=== PATIENT | male | born 1950 | race African-American/Black ===

== ENCOUNTER → 2018-08-22 14:11 | Outpatient (CLI) | payer MEDICARE, OTHER, SELFPAY ==
[2018-08-22 16:20] LABS: Prostate Specific Antigen 0.195 ng/mL (0.10-4.00)
== END ==
PROVIDERS: PCP Internal Medicine; Visit Provider Urology
DX: Z12.5 Encounter for screening for malignant neoplasm of prostate (principal)
CPT/HCPCS: 36415; 84153

== ENCOUNTER → 2019-07-12 13:10 | Outpatient (CLI) | payer MEDICARE, OTHER, SELFPAY ==
--- NOTE | 2019-07-12 | DI.US.S_ITS ---
PROCEDURE: US ABDOMEN LIMITED INDICATIONS: ABNORMAL LIVER FUNCTION STUDIES TECHNIQUE: Real-time scanning was performed of the abdominal and retroperitoneal organs, with image documentation. COMPARISON: None. FINDINGS: Liver: Liver is normal in size and homogeneous in echotexture. Gallbladder: The gallbladder is contracted and the wall measures 2.4 mm in diameter. A 4 mm polyp is present within the fundus. Biliary ducts: Intrahepatic bile ducts are non-dilated. Extrahepatic bile duct caliber measures 4.2 mm. Normal is 6-7 mm or less in diameter, or 10 mm or less post-cholecystectomy. Pancreas: The pancreas is poorly visualized. Spleen: Spleen is normal in size and homogeneous in echotexture. Kidneys: Kidneys are normal in size and echotexture. Right kidney measures 11.1 cm long long. Aorta: Visualized aorta is normal in caliber at less than 3 cm. IMPRESSION: 1. No cholelithiasis or findings to suggest choledocholithiasis or acute cholecystitis. Dictated by: Elizabeth Myers M.D. on 07/12/2019 at 17:25 Approved by: Elizabeth Myers M.D. on 07/12/2019 at 17:27
[2019-07-12 15:44] LABS: Alanine Aminotransferase 224 IU/L (21-72); Albumin 3.9 g/dL (3.5-5.0); Alkaline Phosphatase 78 U/L (38-126); Aspartate Aminotransferase 125 IU/L (17-59); BUN Creatinine Ratio 38.6 (6-22); Bilirubin Total 0.6 mg/dL (0.2-1.3); Bilirubin Unconjugated 0.3 mg/dL (0.0-1.1); Blood Urea Nitrogen 27 mg/dL (9-20); Calcium 9.6 mg/dL (8.4-10.2); Carbon Dioxide 25 mmol/L (22-32); Chloride 106 mmol/L (98-107); Cholesterol 169 mg/dL (140-199); Estimated Glomerular Filt Rate > 60.0 mL/min (>60); Globulin 4.1 g/dL (1.7-4.1); Glucose 78 mg/dL (80-110); HDL Cholesterol 42 mg/dL (40-60); HEMOLYSIS < 15 (0-50); LDL Cholesterol Calculated 111 mg/dL (<100); Potassium 3.7 mmol/L (3.4-5.1); Sodium 141 mmol/L (137-145); Triglycerides 81 mg/dL (35-150)
[2019-07-12 16:17] LABS: Prostate Specific Antigen 0.147 ng/mL (0.10-4.00)
== END ==
PROVIDERS: PCP Internal Medicine; Visit Provider Internal Medicine
DX: R94.5 Abnormal results of liver function studies (principal); I10 Essential (primary) hypertension; E78.2 Mixed hyperlipidemia; N40.0 Benign prostatic hyperplasia without lower urinary tract symptoms
CPT/HCPCS: 36415; 76705; 80048; 80061; 80076; 84153; 87517; 87522

== ENCOUNTER → 2019-07-28 11:23 | Outpatient (CLI) | payer MEDICARE, OTHER, SELFPAY ==
[2019-07-28 12:47] LABS: Add Manual Diff / Slide Review NO; Basophils Absolute Auto 0 /uL (0-100); Basophils Percent Auto 0.6 % (0-2); Eosinophils Absolute Auto 100 /uL (0-450); Eosinophils Percent Auto 2.1 % (2-4); Hematocrit 42.6 % (41-53); Hemoglobin 14.3 g/dL (13.5-17.5); Lymphocytes Absolute Auto 1300 /uL (1100-4500); Lymphocytes Percent Auto 24.6 % (25-40); Mean Corpuscular HGB Conc 33.5 % (30-36); Mean Corpuscular Hemoglobin 32.6 PG (26-34); Mean Corpuscular Volume 97.4 fL (80-100); Monocytes Absolute Auto 400 /uL (0-900); Monocytes Percent Auto 7.3 % (3-14); Neutrophils Absolute Auto 3500 /uL (1500-7000); Neutrophils Percent Auto 65.4 % (50-75); Platelet Count 97 X10^3/uL (150-400); Red Blood Cell Count 4.37 X10^6/uL (4.5-5.9); Red Cell Distribution Width 12.7 % (11.6-14.8); White Blood Cell Count 5.3 X10^3/uL (4.5-11.0)
[2019-07-28 12:49] LABS: Iron 180 ug/dL (49-181)
[2019-07-28 12:57] LABS: Alanine Aminotransferase 322 IU/L (21-72); Albumin 3.8 g/dL (3.5-5.0); Alkaline Phosphatase 76 U/L (38-126); Aspartate Aminotransferase 161 IU/L (17-59); BUN Creatinine Ratio 27.1 (6-22); Bilirubin Total 0.7 mg/dL (0.2-1.3); Blood Urea Nitrogen 19 mg/dL (9-20); Calcium 9.3 mg/dL (8.4-10.2); Carbon Dioxide 27 mmol/L (22-32); Chloride 102 mmol/L (98-107); Estimated Glomerular Filt Rate > 60.0 mL/min (>60); Glucose 135 mg/dL (80-110); HEMOLYSIS < 15 (0-50); Potassium 3.6 mmol/L (3.4-5.1); Sodium 139 mmol/L (137-145); Total Protein 7.8 g/dL (6.3-8.2)
== END ==
PROVIDERS: PCP Internal Medicine; Visit Provider Internal Medicine
DX: E83.119 Hemochromatosis, unspecified (principal); R53.83 Other fatigue
CPT/HCPCS: 36415; 80053; 82728; 83540; 84443; 85025

== ENCOUNTER 2019-09-27 14:09 | Day surgery (SDC) | payer MEDICARE, OTHER, SELFPAY ==
--- NOTE | 2019-09-27 | PATH_ITS ---
[facility] Accession Number: [id number] . 01 Material submitted: . PART A: colon - ASCENDING COLON POLYP PART B: colon - DESCENDING COLON POLYP . 01 Clinical history: . B: POLYP X2 . 02 Diagnosis: A. Ascending Colon, Polyp, Biopsy: Tubular adenoma. . B. Descending Colon, Polyps x2, Biopsies: Tubular adenomas. MRV 10/02/2019 0939 Local . 02 Electronically signed: . Ashley Villasenor MD, Pathologist NPI- [id number] . 01 Gross description: . Part A: ASCENDING COLON POLYP: Received in formalin is 1 fragment(s) of cummings, soft tissue measuring 0.7 x 0.1 x 0.3 cm submitted entirely in 1 cassette(s) Part B: DESCENDING COLON POLYP: Received in formalin are 2 fragment(s) of cummings, soft tissue measuring 0.7 x 0.3 x 0.1 cm to 0.3 x 0.2 x 0.2 cm submitted entirely in 1 cassette(s) /QBJ 09/28/2019 0730 Local . 02 Pathologist provided ICD-10: D12.2, D12.4 . 02 CPT . 222587, 559202 Performed at: 01 [facility] [address], [place], [place] [id number] MD Ned Saha MD Phone: [phone] Performed at: 02 [facility] [place] [address] [place], [place] [id number] MD Ashley Villasenor MD Phone: [phone]
[2019-09-27 14:30] VITALS: BP 152/80; PULSE 81; RESP 20; TEMP 36.8; O2SAT 95; BMI 26.0
[2019-09-27] MEDS: SODIUM CHLORIDE 0.9% 1,000 ML 70 ML IV (14:46)
--- NOTE | 2019-09-27 15:00 | PM.HP.1 ---
History of Present Illness History of Present Illness Date Patient Seen: 09/27/19 Time Patient Seen: 15:00 Chief complaint: [id number] Narrative: Personal history of colon polyps, last colonoscopy 3 years ago. Denies diarrhea or constipation. Denies rectal bleeding. Patient History Medical History Hypertension (Acute) Surgical History S/P total hip resurfacing (Acute) Family & Social History Social History: household members spouse Meds Home Medications and Allergies Home Medications Medication Instructions Recorded Confirmed Type amlodipine 2.5 mg PO DAILY 09/27/19 09/27/19 History tolterodine [Detrol LA] 4 mg PO DAILY 09/27/19 09/27/19 History Allergies Allergy/AdvReac Type Severity Reaction Status Date / Time lovastatin [LOVASTATIN] Allergy Mild LIVER Unverified 09/27/19 14:45 ISSUES Review of Systems Review of Systems ROS Unobtainable: All systems reviewed & are unremarkable except as noted in HPI and below Exam Vital Signs (past 8 hours): - 09/27/19 14:30 Temperature 98.2 F Pulse Rate 81 Respiratory Rate 20 Blood Pressure 152/80 H Pulse Oximetry 95 Oxygen Delivery Method Room Air Const General: cooperative, healthy appearing, comfortable, well groomed and No acute distress Nutritional Appearance: average body habitus Orientation: oriented x3 Resp Effort & Inspection: normal respiratory effort, able to speak in complete sentences and normal respiratory pattern Auscultation: clear to auscultation bilaterally GI Palpation: soft, No guarding, No rigid and No tender Auscultation: normal bowel sounds Extrem Right lower extremity: no edema Left lower extremity: no edema Assessment & Plan Assessment & Plan narrative: 1. Personal history of polyps Colonoscopy, further recommendations to follow
[2019-09-27] MEDS: fentaNYL 250 MCG/5 ML INJ IV (15:01)
[2019-09-27] MEDS: MIDAZOLAM 5 MG/5 ML VIAL IV (15:02)
--- NOTE | 2019-09-27 15:27 | PM.OP.ENDO ---
Operative Date/Time/Diagnoses Date of procedure: 09/27/19 Time of procedure: 15:05 Procedure Notes Procedure in detail: Surgeon: Jovita Johnson DO Procedure: Colonoscopy with polypectomy Preoperative diagnosis: 1. Personal history colon polyps, last colonoscopy 3 years ago Postoperative diagnosis: 1. 5mm Ascending colon polyp removed with cold snare 2. Two polyps in the descending colon 5-6 mm in size removed with cold snare 3. Sigmoid diverticulosis 4. Grade 1 internal hemorrhoids Medications: Conscious sedation using 5 mg IV of Midazolam and 100 mcg IV of Fentanyl Preanesthesia Assessment An H and P was performed/updated and the Px?s ASA class is 2. The procedure was discussed in detail with the patient. The potential risks and complications including infection, bleeding, missed lesions, perforation, need for surgery in case of perforation, prolonged hospital stay, and were explained. A brief question and answer period was allotted and once all questions were answered, informed consent was obtained. The patient was brought back to the procedure room and placed on standard monitoring. The patient?s vital signs were monitored continuously throughout the entire procedure. Prior to starting, a timeout was performed to confirm the patient?s identity, allergies, medications, and procedure. Procedure in detail The patient was placed in left lateral decubitus position and once adequate sedation was obtained a [place] was performed. The digital rectal examination did not reveal any palpable lesions. The tip of the colonoscope was placed in the anal canal and advanced without difficulty all the way to the cecum which was identified by the appendiceal orifice and the ileocecal valve. Careful examination of all thomas of the colon was performed with irrigation of any residual stool. One polyp in the ascending colon removed cold 5 mm Two polyps in the descending colon measuring 5-6 mm in size removed with cold snare Sigmoid diverticulosis Grade 1 mild internal hemorrhoids The patient tolerated the procedure well and will be brought back to the recovery area to be discharged once criteria are met. The prep was judged to be good/excellent and adequate to identify polyps less than 5 mm. The withdrawal time was 11min. The total physician intraservice time was 21min. Complications There were no complications and estimated blood loss was minimal. Recommendations: Resume previous diet Continue outPx medications Follow up pathology results Repeat colonoscopy in 3-5 years based on pathology results An emergency contact number was given to the patient for any complications related to the procedure
[2019-09-27 15:36] VITALS: BP 137/70; PULSE 82; RESP 14; TEMP 36.6; O2SAT 97
[2019-09-27 15:41] VITALS: BP 133/78; PULSE 91; RESP 11; O2SAT 97
[2019-09-27 16:00] VITALS: BP 143/82; PULSE 84; RESP 20; TEMP 36.2; O2SAT 97
== END 2019-09-27 16:04 | disposition home or self-care (01) ==
PROVIDERS: PCP Internal Medicine; Visit Provider Student in an Organized Health Care Education/Training Program
PROC: 0DJD8ZZ Inspection of Lower Intestinal Tract, Via Natural or Artificial Opening Endoscopic (ICD-10-PCS; CPT 45378; principal; 2019-09-27 15:00)
DX: Z12.11 Encounter for screening for malignant neoplasm of colon (principal); Z86.010 Personal history of colon polyps; I10 Essential (primary) hypertension; K64.0 First degree hemorrhoids; K57.30 Diverticulosis of large intestine without perforation or abscess without bleeding; D12.2 Benign neoplasm of ascending colon; D12.4 Benign neoplasm of descending colon
CPT/HCPCS: 45385; J2250; J3010

== ENCOUNTER → 2019-11-30 14:37 | Outpatient (ROUT) | payer MEDICARE, OTHER, SELFPAY ==
[2019-11-30 14:54] LABS: Add Manual Diff / Slide Review NO; Basophils Absolute Auto 100 /uL (0-100); Eosinophils Absolute Auto 100 /uL (0-450); Eosinophils Percent Auto 2.5 % (2-4); Hematocrit 43.2 % (41-53); Hemoglobin 14.8 g/dL (13.5-17.5); Lymphocytes Absolute Auto 1800 /uL (1100-4500); Lymphocytes Percent Auto 30.3 % (25-40); Mean Corpuscular HGB Conc 34.3 % (30-36); Mean Corpuscular Hemoglobin 33.3 PG (26-34); Mean Corpuscular Volume 97.1 fL (80-100); Monocytes Absolute Auto 600 /uL (0-900); Monocytes Percent Auto 9.6 % (3-14); Neutrophils Absolute Auto 3300 /uL (1500-7000); Neutrophils Percent Auto 56.6 % (50-75); Platelet Count 105 X10^3/uL (150-400); Red Blood Cell Count 4.45 X10^6/uL (4.5-5.9); Red Cell Distribution Width 12.5 % (11.6-14.8); White Blood Cell Count 5.9 X10^3/uL (4.5-11.0)
[2019-11-30 15:56] LABS: Alanine Aminotransferase 341 IU/L (<50); Albumin Globulin Ratio 0.9 (1.0-2.8); Alkaline Phosphatase 77 U/L (38-126); Aspartate Aminotransferase 165 IU/L (17-59); BUN Creatinine Ratio 27.5 (6-22); Bilirubin Total 0.6 mg/dL (0.2-1.3); Blood Urea Nitrogen 22 mg/dL (9-20); Calcium 9.7 mg/dL (8.4-10.2); Carbon Dioxide 28 mmol/L (22-32); Chloride 103 mmol/L (98-107); Estimated Glomerular Filt Rate > 60.0 mL/min (>60); Globulin 4.4 g/dL (1.7-4.1); Glucose 80 mg/dL (80-110); HEMOLYSIS < 15 (0-50); Potassium 4.2 mmol/L (3.4-5.1); Sodium 139 mmol/L (137-145); Total Protein 8.4 g/dL (6.3-8.2); Uric Acid 5.8 mg/dL (3.5-8.5)
== END ==
PROVIDERS: PCP Internal Medicine; Visit Provider Internal Medicine
DX: M10.9 Gout, unspecified (principal); R94.5 Abnormal results of liver function studies
CPT/HCPCS: 80053; 84550; 85025

== ENCOUNTER → 2020-03-21 15:18 | Outpatient (CLI) | payer MEDICARE, OTHER, SELFPAY ==
[2020-03-21 15:52] LABS: Add Manual Diff / Slide Review NO; Basophils Absolute Auto 100 /uL (0-100); Basophils Percent Auto 1.1 % (0-2); Eosinophils Absolute Auto 200 /uL (0-450); Eosinophils Percent Auto 3.6 % (2-4); Hematocrit 41.7 % (41-53); Hemoglobin 14.5 g/dL (13.5-17.5); Lymphocytes Absolute Auto 1900 /uL (1100-4500); Lymphocytes Percent Auto 29.9 % (25-40); Mean Corpuscular HGB Conc 34.8 % (30-36); Mean Corpuscular Hemoglobin 33.2 PG (26-34); Mean Corpuscular Volume 95.4 fL (80-100); Monocytes Absolute Auto 500 /uL (0-900); Monocytes Percent Auto 8.1 % (3-14); Neutrophils Absolute Auto 3700 /uL (1500-7000); Neutrophils Percent Auto 57.3 % (50-75); Platelet Count 107 X10^3/uL (150-400); Red Blood Cell Count 4.37 X10^6/uL (4.5-5.9); Red Cell Distribution Width 12.4 % (11.6-14.8); White Blood Cell Count 6.4 X10^3/uL (4.5-11.0)
[2020-03-21 15:58] LABS: Alanine Aminotransferase 261 IU/L (<50); Albumin 4.2 g/dL (3.5-5.0); Alkaline Phosphatase 86 U/L (38-126); Aspartate Aminotransferase 141 IU/L (17-59); BUN Creatinine Ratio 26.2 (6-22); Bilirubin Total 0.6 mg/dL (0.2-1.3); Blood Urea Nitrogen 22 mg/dL (9-20); Calcium 9.5 mg/dL (8.4-10.2); Carbon Dioxide 27 mmol/L (22-32); Chloride 105 mmol/L (98-107); Estimated Glomerular Filt Rate > 60.0 mL/min (>60); Gamma Glutamyl Transpeptidase 36 U/L (15-73); Globulin 4.3 g/dL (1.7-4.1); Glucose 91 mg/dL (80-110); HEMOLYSIS < 15 (0-50); Potassium 3.9 mmol/L (3.4-5.1); Sodium 140 mmol/L (137-145); Total Protein 8.5 g/dL (6.3-8.2)
[2020-03-21 16:05] LABS: INR 1.2 (0.9-1.3); Prothrombin Time 13.3 SECONDS (10.1-12.7)
[2020-03-21 17:56] LABS: Hep C Virus Ab w/Reflex Quant REACTIVE s/c (NEGATIVE); Hepatitis B Surface Antigen POSITIVE s/c (NEGATIVE)
== END ==
PROVIDERS: PCP Internal Medicine; Referring Provider Internal Medicine Gastroenterology; Visit Provider Internal Medicine Gastroenterology
DX: Z11.59 Encounter for screening for other viral diseases (principal); R94.5 Abnormal results of liver function studies; B18.1 Chronic viral hepatitis B without delta-agent
CPT/HCPCS: 36415; 80053; 82977; 85025; 85610; 86803; 87340; 87517; 87522

== ENCOUNTER → 2020-07-29 19:05 | Outpatient (ROUT) | payer MEDICARE, OTHER, SELFPAY ==
[2020-07-29 19:29] LABS: HEMOLYSIS < 15 (0-50)
[2020-07-29 19:37] LABS: Blood Urea Nitrogen 18 mg/dL (9-20); Calcium 9.5 mg/dL (8.4-10.2); Carbon Dioxide 32 mmol/L (22-32); Chloride 102 mmol/L (98-107); Cholesterol 204 mg/dL (140-199); Estimated Glomerular Filt Rate > 60.0 mL/min (>60); Glucose 93 mg/dL (80-110); HDL Cholesterol 47 mg/dL (40-60); LDL Cholesterol Calculated 133 mg/dL (<100); Potassium 4.3 mmol/L (3.4-5.1); Sodium 139 mmol/L (137-145); Triglycerides 121 mg/dL (35-150)
[2020-08-01 16:09] LABS: Prostate Specific Antigen 0.182 ng/mL (0.10-4.00)
== END ==
PROVIDERS: PCP Internal Medicine; Visit Provider Internal Medicine
DX: E78.2 Mixed hyperlipidemia (principal); N40.0 Benign prostatic hyperplasia without lower urinary tract symptoms; I10 Essential (primary) hypertension
CPT/HCPCS: 80048; 80061; 84153

== ENCOUNTER → 2020-09-10 08:05 | Outpatient (CLI) | payer MEDICARE, OTHER, SELFPAY ==
--- NOTE | 2020-09-10 | DI.US.S_ITS ---
PROCEDURE: US ABDOMEN LIMITED INDICATIONS: CHRONIC HEP-B TECHNIQUE: Real-time focused scanning was performed of the abdomen, with image documentation. COMPARISON: [facility], [place], US ABDOMEN LIMITED, 07/12/2019, 13:54. [place], ABDOMEN COMPLETE, 03/08/2013, 8:40. [facility], US, US ABDOMEN COMPLETE, 03/18/2020, 10:31. [facility], US, US ABDOMEN COMPLETE, 10/09/2019, 7:13. FINDINGS: Liver is normal in size. Liver is diffusely echogenic. No focal hepatic mass lesions. No intrahepatic biliary tree dilatation. Main portal vein measures 1.36 centimeters and is patent. Gallbladder is sonographically normal. No gallstones. Previously identified gallbladder polyp is not identified in the current study. No gallbladder wall thickening with gallbladder wall measuring 2.0 millimeters. Biliary tree is nondilated. Common bile duct measures 3.6 millimeters. Pancreas is sonographically normal. IMPRESSION: 1. Echogenic liver. Finding typically represents fatty infiltration; however, finding is nonspecific and correlation with clinical and laboratory findings is recommended to exclude other etiologies including hepatic cirrhosis. 2. No focal hepatic mass lesions. 3. Previously identified gallbladder polyp is not seen in the current study and cannot be evaluated for interval change. Dictated by: Jeane Campuzano MD, PhD on 09/10/2020 at 17:00 Approved by: Jeane Campuzano MD, PhD on 09/10/2020 at 17:02
[2020-09-12 10:12] LABS: Hepatitis B Virus DNA <10 IU/mL (.)
== END ==
PROVIDERS: PCP Internal Medicine; Referring Provider Internal Medicine; Visit Provider Internal Medicine Gastroenterology
DX: B18.1 Chronic viral hepatitis B without delta-agent (principal)
CPT/HCPCS: 36415; 76705; 87517

== ENCOUNTER → 2020-12-13 09:53 | Outpatient (CLI) | payer MEDICARE, OTHER, SELFPAY ==
[2020-12-13 10:39] LABS: Add Manual Diff / Slide Review NO; Basophils Absolute Auto 100 /uL (0-100); Basophils Percent Auto 0.9 % (0-2); Eosinophils Absolute Auto 200 /uL (0-450); Eosinophils Percent Auto 3.2 % (2-4); Hematocrit 45.7 % (41-53); Hemoglobin 15.3 g/dL (13.5-17.5); Lymphocytes Absolute Auto 2000 /uL (1100-4500); Lymphocytes Percent Auto 32.5 % (25-40); Mean Corpuscular HGB Conc 33.6 % (30-36); Mean Corpuscular Hemoglobin 32.4 PG (26-34); Mean Corpuscular Volume 96.6 fL (80-100); Monocytes Absolute Auto 600 /uL (0-900); Monocytes Percent Auto 9.1 % (3-14); Neutrophils Absolute Auto 3300 /uL (1500-7000); Neutrophils Percent Auto 54.3 % (50-75); Platelet Count 94 X10^3/uL (150-400); Red Blood Cell Count 4.73 X10^6/uL (4.5-5.9); Red Cell Distribution Width 12.4 % (11.6-14.8); White Blood Cell Count 6.1 X10^3/uL (4.5-11.0)
[2020-12-13 10:50] LABS: INR 1.1 (0.9-1.3); Prothrombin Time 12.6 SECONDS (10.1-12.7)
[2020-12-13 11:11] LABS: Alanine Aminotransferase 245 IU/L (<50); Albumin 4.3 g/dL (3.5-5.0); Albumin Globulin Ratio 0.9 (1.0-2.8); Alkaline Phosphatase 82 U/L (38-126); Aspartate Aminotransferase 112 IU/L (17-59); BUN Creatinine Ratio 26.7 (6-22); Bilirubin Total 0.6 mg/dL (0.2-1.3); Bilirubin Unconjugated 0.6 mg/dL (0.0-1.1); Blood Urea Nitrogen 23 mg/dL (9-20); Calcium 9.4 mg/dL (8.4-10.2); Carbon Dioxide 31 mmol/L (22-32); Chloride 105 mmol/L (98-107); Estimated Glomerular Filt Rate > 60.0 mL/min (>60); Globulin 4.8 g/dL (1.7-4.1); Glucose 92 mg/dL (80-110); HEMOLYSIS < 15 (0-50); Potassium 3.9 mmol/L (3.4-5.1); Sodium 139 mmol/L (137-145); Total Protein 9.1 g/dL (6.3-8.2)
[2020-12-14 07:40] LABS: Alpha Fetoprotein 6.3 ng/mL (0.0-8.3)
== END ==
PROVIDERS: PCP Internal Medicine; Referring Provider Internal Medicine Gastroenterology; Visit Provider Internal Medicine Gastroenterology
DX: B18.1 Chronic viral hepatitis B without delta-agent (principal)
CPT/HCPCS: 36415; 80048; 80076; 82105; 85025; 85610

== ENCOUNTER → 2020-12-27 14:46 | Outpatient (CLI) | payer MEDICARE, OTHER, SELFPAY | PROVIDERS: PCP Internal Medicine; Referring Provider Psychiatry & Neurology Neuromuscular Medicine; Visit Provider Psychiatry & Neurology Neuromuscular Medicine | DX: B18.1 Chronic viral hepatitis B without delta-agent (principal) | CPT/HCPCS: 36415; 86692 ==

== ENCOUNTER → 2021-02-20 11:07 | Outpatient (CLI) | payer MEDICARE, OTHER, SELFPAY ==
[2021-02-20 13:05] LABS: Prostate Specific Antigen 0.164 ng/mL (0.10-4.00)
[2021-02-21 04:36] LABS: Hepatitis B Surf AB Quant <3.1 mIU/mL (Immunity>9.9)
== END ==
PROVIDERS: PCP Internal Medicine; Referring Provider Internal Medicine Gastroenterology; Visit Provider Internal Medicine Gastroenterology
DX: Z12.5 Encounter for screening for malignant neoplasm of prostate (principal); B18.1 Chronic viral hepatitis B without delta-agent
CPT/HCPCS: 36415; 84153; 86692; 86706; G0103

== ENCOUNTER → 2021-03-18 13:00 | Outpatient (CLI) | payer MEDICARE, OTHER, SELFPAY | PROVIDERS: PCP Internal Medicine; Referring Provider Internal Medicine Gastroenterology; Visit Provider Internal Medicine Gastroenterology | DX: B18.1 Chronic viral hepatitis B without delta-agent (principal) | CPT/HCPCS: 36415; 87799 ==

== ENCOUNTER → 2021-03-20 14:41 | Outpatient (CLI) | payer MEDICARE, OTHER, SELFPAY | PROVIDERS: PCP Internal Medicine; Referring Provider Internal Medicine Gastroenterology; Visit Provider Internal Medicine Gastroenterology | DX: B18.1 Chronic viral hepatitis B without delta-agent (principal); Z53.8 Procedure and treatment not carried out for other reasons ==

== ENCOUNTER → 2021-03-21 14:32 | Outpatient (CLI) | payer MEDICARE, OTHER, SELFPAY ==
--- NOTE | 2021-03-21 14:34 | DI.US.S_ITS ---
PROCEDURE: US ABDOMEN LIMITED INDICATIONS: Chronic viral hepatitis B without delta-agent TECHNIQUE: Real-time focused scanning was performed of the abdomen, with image documentation. COMPARISON: [facility], US, US ABDOMEN LIMITED, 07/12/2019, 13:54. [facility], US, US ABDOMEN COMPLETE, 10/09/2019, 7:13. [facility], US, US ABDOMEN COMPLETE, 03/18/2020, 10:31. [facility], US, US ABDOMEN LIMITED, 09/10/2020, 8:21. FINDINGS: The liver is normal in size and demonstrates no focal lesions. No findings of gallstones or sludge are seen. The gallbladder wall is not thickened, measuring 3 mm or less. No specific pericholecystic fluid is seen. The sonographic Hoffman sign is negative. There is no biliary dilatation, the common bile duct measures 4 mm. No significant pancreatic abnormality is seen on these images. IMPRESSION: Normal appearing liver. The gallbladder demonstrates a normal sonographic appearance. No biliary dilatation is seen. Dictated by: Shamar Sadler M.D. on 03/21/2021 at 15:07 Approved by: Shamar Sadler M.D. on 03/21/2021 at 15:09
== END ==
PROVIDERS: PCP Internal Medicine; Referring Provider Internal Medicine Gastroenterology; Visit Provider Internal Medicine Gastroenterology
DX: B18.1 Chronic viral hepatitis B without delta-agent (principal); K74.02 Hepatic fibrosis, advanced fibrosis
CPT/HCPCS: 76705

== ENCOUNTER → 2021-09-10 08:07 | Outpatient (CLI) | payer MEDICARE, OTHER, SELFPAY ==
--- NOTE | 2021-09-10 08:09 | DI.US.S_ITS ---
PROCEDURE: US ABDOMEN LIMITED INDICATIONS: CHRONIC HEPATITIS B TECHNIQUE: Real-time focused scanning was performed of the abdomen, with image documentation. COMPARISON: [facility], [place], US ABDOMEN COMPLETE, 03/18/2020, 10:31. [facility], [place], US ABDOMEN LIMITED, 09/10/2020, 8:21. [facility], [place], US ABDOMEN LIMITED, 03/21/2021, 13:41. FINDINGS: The liver demonstrates normal size and demonstrates overall normal liver echotexture. Within the right liver, there is a slightly hypoechoic lesion that measures 2.4 x 1.9 x 2 cm. The main portal vein demonstrates normal size and demonstrates normal appearing, hepatopetal flow. No findings of gallstones or sludge are seen. The gallbladder wall is not thickened, measuring 3 mm or less. A likely 3 mm gallbladder wall polyp can be seen. No specific pericholecystic fluid is seen. The sonographic Hoffman sign is negative. There is no biliary dilatation, the common bile duct measures 4 mm. The pancreas is not well seen. IMPRESSION: There is a 2.4 cm hypoechoic lesion seen within the right lobe of the liver, which cannot be seen on prior examinations. A liver protocol MRI (without and with contrast) is now recommended for further evaluation (assuming that there is no contraindication). Dictated by: Shamar Sadler M.D. on 09/10/2021 at 10:04 Approved by: Shamar Sadler M.D. on 09/10/2021 at 10:08
== END ==
PROVIDERS: PCP Internal Medicine; Referring Provider Internal Medicine Gastroenterology; Visit Provider Internal Medicine Gastroenterology
DX: B18.1 Chronic viral hepatitis B without delta-agent (principal); K76.9 Liver disease, unspecified
CPT/HCPCS: 76705

== ENCOUNTER → 2021-09-26 12:36 | Outpatient (CLI) | payer MEDICARE, OTHER, SELFPAY ==
--- NOTE | 2021-09-26 | DI.MRI.S_ITS ---
PROCEDURE: MR ABDOMEN WO/W CON INDICATIONS: 71-year-old male with history of hepatitis-B with liver lesion on prior ultrasound. TECHNIQUE: Coronal HASTE, axial 2D FLASH in- and [id number]; axial breath-hold T2 FSE. Dynamic axial VIBE during the administration of contrast; post-contrast coronal VIBE or 2D FLASH with fat saturation from the hepatic dome to the iliac crests. Optional diffusion weighted imaging and ADC may be performed. COMPARISON: [facility], , US ABDOMEN LIMITED, 09/10/2020, 8:21. [facility], [place], US ABDOMEN LIMITED, 03/21/2021, 13:41. [facility], , US ABDOMEN LIMITED, 09/10/2021, 8:14. FINDINGS: Image quality: There is mild motion artifact. Lung bases: No basal pleural effusions. Heart size is normal. Solid organs: Within the posterior right hepatic lobe centered between segments 6 and 7, there is an oval T1 hypointense and slightly T2 hyperintense mass measuring up to 2.0 x 1.8 x 2.0 cm. This demonstrates associated restricted diffusion. Following contrast administration, the mass demonstrates isointense to mildly hypointense signal on the arterial phase with internal washout on portal venous and delayed phases. There is an enhancing pseudocapsule. The findings are consistent with a LR-4 observation. Elsewhere, no additional discrete hepatic mass or suspicious enhancement identified. Biliary system is non dilated. Pancreas is normal in morphology. Spleen is normal in size and enhancement. No adrenal nodules. Kidneys demonstrate no hydronephrosis. There are a few small bilateral renal cysts. Nodes and vessels: There are a few mildly enlarged kane hepatis, celiac axis, and retroperitoneal lymph nodes within the upper abdomen. These include a kane hepatis node measuring up to 1.2 cm in short axis. Aorta and inferior vena cava are normal in size. Bowel and peritoneum: Visualized bowel loops are normal in caliber. No free fluid. Bones and soft tissues: No ventral hernias. Bone marrow is normal in overall signal. IMPRESSION: 1. Right hepatic mass is consistent with an LR-4 observation compatible with probable hepatocellular carcinoma. 2. Mildly enlarged upper abdominal lymph nodes are nonspecific and are likely reactive secondary to history of chronic liver disease but the differential includes metastatic disease. Dictated by: Ned Jansen M.D. on 09/26/2021 at 13:31 Approved by: Ned Jansen M.D. on 09/26/2021 at 14:00
== END ==
PROVIDERS: PCP Internal Medicine; Referring Provider Internal Medicine Gastroenterology; Visit Provider Internal Medicine Gastroenterology
DX: K76.9 Liver disease, unspecified (principal); R59.0 Localized enlarged lymph nodes; Z86.19 Personal history of other infectious and parasitic diseases; Z91.89 Other specified personal risk factors, not elsewhere classified
CPT/HCPCS: 74183

== ENCOUNTER → 2022-02-09 08:48 | Outpatient (CLI) | payer MEDICARE, OTHER, SELFPAY | PROVIDERS: PCP Internal Medicine; Referring Provider Family Medicine; Visit Provider Family Medicine | DX: Z13.820 Encounter for screening for osteoporosis | CPT/HCPCS: 77080; 77081 ==

== ENCOUNTER → 2023-01-25 09:52 | Outpatient (CLI) | payer MEDICARE, OTHER, SELFPAY ==
[2023-01-25 16:56] LABS: Cholesterol 203 mg/dL (140-199); Glucose 97 mg/dL (80-110); HDL Cholesterol 39 mg/dL (40-60); LDL Cholesterol Calculated 142 mg/dL (<100); Triglycerides 110 mg/dL (35-150)
[2023-01-25 17:25] LABS: Prostate Specific Antigen 0.223 ng/mL (0.10-4.00)
== END ==
PROVIDERS: PCP Internal Medicine; Referring Provider Internal Medicine; Visit Provider Internal Medicine
DX: E78.2 Mixed hyperlipidemia (principal); N40.1 Benign prostatic hyperplasia with lower urinary tract symptoms; N13.8 Other obstructive and reflux uropathy
CPT/HCPCS: 36415; 80061; 82947; 84153

== ENCOUNTER → 2024-05-03 15:11 | Outpatient (CLI) | payer MEDICARE, OTHER, SELFPAY ==
[2024-05-03 17:10] LABS: Hematocrit 40.5 % (41-53); Hemoglobin 13.7 g/dL (13.5-17.5); Mean Corpuscular HGB Conc 33.9 % (30-36); Mean Corpuscular Hemoglobin 32.7 PG (26-34); Mean Corpuscular Volume 96.5 fL (80-100); Platelet Count 102 X10^3/uL (150-400); Red Cell Distribution Width 12.8 % (11.6-14.8)
[2024-05-03 17:32] LABS: Alanine Aminotransferase 405 IU/L (<50); Albumin 4.2 g/dL (3.5-5.0); Alkaline Phosphatase 70 U/L (38-126); Aspartate Aminotransferase 182 IU/L (17-59); BUN Creatinine Ratio 34.1 (6-22); Bilirubin Total 0.6 mg/dL (0.2-1.3); Blood Urea Nitrogen 29 mg/dL (9-20); Calcium 9.7 mg/dL (8.4-10.2); Carbon Dioxide 30 mmol/L (22-32); Chloride 107 mmol/L (98-107); Cholesterol 193 mg/dL (140-199); Estimated Glomerular Filt Rate > 60 mL/min (>60); Globulin 4.3 g/dL (1.7-4.1); Glucose 70 mg/dL (80-110); HDL Cholesterol 53 mg/dL (40-60); HEMOLYSIS < 15 (0-50); LDL Cholesterol Calculated 121 mg/dL (<100); Potassium 4.2 mmol/L (3.4-5.1); Sodium 143 mmol/L (137-145); Total Protein 8.5 g/dL (6.3-8.2); Triglycerides 94 mg/dL (35-150)
== END ==
PROVIDERS: PCP Internal Medicine; Referring Provider Internal Medicine; Visit Provider Internal Medicine
DX: N40.1 Benign prostatic hyperplasia with lower urinary tract symptoms (principal); N13.8 Other obstructive and reflux uropathy; E78.2 Mixed hyperlipidemia; I10 Essential (primary) hypertension
CPT/HCPCS: 36415; 80053; 80061; 84153; 85027

== ENCOUNTER → 2024-10-31 15:22 | Outpatient (CLI) | payer MEDICARE, OTHER, SELFPAY ==
[2024-10-31 16:24] LABS: INR 1.1 (0.9-1.3); Prothrombin Time 12.5 SECONDS (9.4-12.5)
[2024-10-31 16:39] LABS: Alanine Aminotransferase 327 IU/L (<50); Albumin 4.1 g/dL (3.5-5.0); Albumin Globulin Ratio 0.8 (1.0-2.8); Alkaline Phosphatase 93 U/L (38-126); Aspartate Aminotransferase 156 IU/L (17-59); BUN Creatinine Ratio 24.4 (6-22); Bilirubin Total 0.7 mg/dL (0.2-1.3); Blood Urea Nitrogen 21 mg/dL (9-20); Calcium 9.5 mg/dL (8.4-10.2); Carbon Dioxide 28 mmol/L (22-32); Chloride 106 mmol/L (98-107); Estimated Glomerular Filt Rate > 60 mL/min (>60); Globulin 4.9 g/dL (1.7-4.1); Glucose 126 mg/dL (80-110); HEMOLYSIS < 15 (0-50); Potassium 3.6 mmol/L (3.4-5.1); Sodium 139 mmol/L (137-145)
[2024-11-02 22:36] LABS: Alpha Fetoprotein 6.1 ng/mL (0.0-8.4)
== END ==
PROVIDERS: PCP Internal Medicine; Referring Provider Internal Medicine Gastroenterology; Visit Provider Internal Medicine Gastroenterology
DX: B18.1 Chronic viral hepatitis B without delta-agent (principal); C22.0 Liver cell carcinoma
CPT/HCPCS: 36415; 80053; 82105; 85610

== ENCOUNTER → 2025-03-29 11:17 | Outpatient (CLI) | payer MEDICARE, OTHER, SELFPAY ==
--- NOTE | 2025-03-29 11:19 | DI.RAD.S_ITS ---
PROCEDURE: XR LUMBAR SPINE 2-3V INDICATIONS: right sciatica, liver cancer TECHNIQUE: 3 views of the lumbar spine were acquired. COMPARISON: None. FINDINGS: Bones: 5 [id number] vertebrae are present. There is normal bony alignment. No vertebral body compression fractures. No suspicious bony lesions. Multilevel degenerative disc disease is present. There is a left arthroplasty. Soft tissues: Overlying bowel gas pattern is normal. No suspicious soft tissue calcifications. IMPRESSION: No acute bony abnormality. Dictated by: Christelle Patton M.D. on 03/29/2025 at 15:19 Approved by: Christelle Patton M.D. on 03/29/2025 at 15:21
== END ==
PROVIDERS: PCP Internal Medicine; Referring Provider Internal Medicine; Visit Provider Internal Medicine
DX: M54.31 Sciatica, right side (principal); Z85.05 Personal history of malignant neoplasm of liver
CPT/HCPCS: 72100

== ENCOUNTER → 2025-04-27 16:12 | Outpatient (CLI) | payer MEDICARE, OTHER, SELFPAY ==
--- NOTE | 2025-04-27 16:14 | DI.MRI.S_ITS ---
PROCEDURE: MR LUMBAR SPINE WO/W CON INDICATIONS: right sciatica. liver transplant TECHNIQUE: Noncontrast sagittal T1 spin echo and T2 fast spin echo, sagittal STIR, axial T1 and T2 fast spin echo through the lumbar spine. In cases with scoliosis, additional coronal T2 fast spin echo may be performed. After the administration of contrast, sagittal and axial T1 spin echo with fat saturation through the lumbar spine. COMPARISON: None. FINDINGS: Image quality: Excellent. Alignment and curvature: Minimal retrolisthesis of L2 on L3 and L3 on L4. Minimal anterolisthesis of L5 on S1 Marrow: Marrow is of normal overall signal. No acute vertebral body compression fractures. No suspicious marrow enhancement. Spinal cord: Conus medullaris terminates at the T12-L1 level. Visualized spinal cord demonstrates normal signal, without suspicious enhancement. Paraspinous soft tissues: No paravertebral masses or abnormal enhancement. T12-L1: Normal appearance. L1-L2: Disc desiccation and disc bulge. Facet arthropathy. No significant central canal or neural foraminal stenosis. L2-L3: Disc desiccation and moderate height loss. Mild disc bulge. Facet arthropathy. No significant central canal or neural foraminal stenosis. L3-L4: 9. Disc desiccation and mild height loss. Mild disc bulge. Facet hypertrophy. Epidural lipomatosis. Moderate central canal stenosis. Ecgn-[id number]-[id number] bilateral neural foraminal stenosis. L4-L5: Disc desiccation and moderate height loss. Diffuse disc bulge. Small superimposed central disc protrusion. Facet hypertrophy. Severe central canal stenosis. Mild to moderate bilateral neural foraminal stenosis. L5-S1: Disc desiccation and small central disc protrusion. Facet hypertrophy. No significant central canal stenosis. Mild right and no left neural foraminal stenosis. IMPRESSION: Multilevel degenerative changes of the lumbar spine as described above. Severe central canal stenosis at L4-5. Dictated by: Jacinto Park M.D. on 04/30/2025 at 8:47 Approved by: Jacinto Park M.D. on 04/30/2025 at 8:51
== END ==
PROVIDERS: PCP Internal Medicine; Referring Provider Internal Medicine; Visit Provider Internal Medicine
DX: M47.26 Other spondylosis with radiculopathy, lumbar region (principal); M47.27 Other spondylosis with radiculopathy, lumbosacral region; M51.16 Intervertebral disc disorders with radiculopathy, lumbar region; M51.17 Intervertebral disc disorders with radiculopathy, lumbosacral region; M48.061 Spinal stenosis, lumbar region without neurogenic claudication; M48.07 Spinal stenosis, lumbosacral region; Z94.4 Liver transplant status
CPT/HCPCS: 72158; A9579

== ENCOUNTER → 2025-06-09 10:34 | Outpatient (CLI) | payer MEDICARE, OTHER, SELFPAY | PROVIDERS: PCP Internal Medicine; Referring Provider Internal Medicine; Visit Provider Internal Medicine | DX: R19.7 Diarrhea, unspecified (principal); Z48.298 Encounter for aftercare following other organ transplant; Z94.4 Liver transplant status | CPT/HCPCS: 87045 ==

== ENCOUNTER → 2025-06-12 07:03 | Outpatient (CLI) | payer MEDICARE, OTHER, SELFPAY ==
[2025-06-12 07:55] LABS: Add Manual Diff / Slide Review NO; Hematocrit 32.9 % (41-53); Hemoglobin 10.9 g/dL (13.5-17.5); Lymphocytes Absolute Auto 1300 /uL (1100-4500); Mean Corpuscular HGB Conc 33.1 % (30-36); Mean Corpuscular Hemoglobin 30.2 PG (26-34); Mean Corpuscular Volume 91.2 fL (80-100); Platelet Count 220 X10^3/uL (150-400)
[2025-06-12 08:10] LABS: INR 1.2 (0.9-1.3); Prothrombin Time 13.1 SECONDS (9.4-12.5)
[2025-06-12 08:19] LABS: Alanine Aminotransferase 21 IU/L (<50); Albumin 3.9 g/dL (3.5-5.0); Albumin Globulin Ratio 1.4 (1.0-2.8); Alkaline Phosphatase 70 U/L (38-126); Blood Urea Nitrogen 26 mg/dL (9-20); Calcium 9.3 mg/dL (8.4-10.2); Carbon Dioxide 22 mmol/L (22-32); Chloride 106 mmol/L (98-107); Estimated Glomerular Filt Rate > 60 mL/min (>60); Globulin 2.7 g/dL (1.7-4.1); Glucose 136 mg/dL (70-99); HEMOLYSIS < 15 (0-50); Magnesium 1.5 mg/dL (1.6-2.3); Phosphorous 3.6 mg/dL (2.3-3.7); Potassium 4.2 mmol/L (3.4-5.1); Sodium 138 mmol/L (137-145); Total Protein 6.6 g/dL (6.3-8.2)
[2025-06-14 14:09] LABS: CMV DNA, Quant Real Time PCR Negative (Negative)
== END ==
PROVIDERS: PCP Internal Medicine; Referring Provider Internal Medicine
DX: Z48.298 Encounter for aftercare following other organ transplant (principal); Z79.899 Other long term (current) drug therapy; Z94.4 Liver transplant status
CPT/HCPCS: 36415; 80053; 80076; 80197; 83735; 84100; 85025; 85610; 87497

== ENCOUNTER → 2025-07-17 06:41 | Outpatient (CLI) | payer MEDICARE, OTHER, SELFPAY ==
[2025-07-17 07:45] LABS: Add Manual Diff / Slide Review NO; Hematocrit 36.3 % (41-53); Hemoglobin 12.1 g/dL (13.5-17.5); Lymphocytes Absolute Auto 1000 /uL (1100-4500); Mean Corpuscular HGB Conc 33.2 % (30-36); Mean Corpuscular Hemoglobin 29.7 PG (26-34); Mean Corpuscular Volume 89.4 fL (80-100); Platelet Count 154 X10^3/uL (150-400)
[2025-07-17 07:52] LABS: INR 1.1 (0.9-1.3); Prothrombin Time 12.3 SECONDS (9.4-12.5)
[2025-07-17 08:09] LABS: Alanine Aminotransferase 21 IU/L (<50); Albumin 4.3 g/dL (3.5-5.0); Albumin Globulin Ratio 1.6 (1.0-2.8); Alkaline Phosphatase 74 U/L (38-126); Blood Urea Nitrogen 28 mg/dL (9-20); Calcium 9.1 mg/dL (8.4-10.2); Carbon Dioxide 22 mmol/L (22-32); Chloride 108 mmol/L (98-107); Estimated Glomerular Filt Rate > 60 mL/min (>60); Gamma Glutamyl Transpeptidase 19 U/L (15-73); Globulin 2.7 g/dL (1.7-4.1); Glucose 116 mg/dL (70-99); HEMOLYSIS < 15 (0-50); Magnesium 1.3 mg/dL (1.6-2.3); Phosphorous 3.6 mg/dL (2.3-3.7); Potassium 3.9 mmol/L (3.4-5.1); Sodium 140 mmol/L (137-145); Total Protein 7.0 g/dL (6.3-8.2)
[2025-07-19 15:40] LABS: CMV DNA, Quant Real Time PCR Negative (Negative)
== END ==
PROVIDERS: PCP Internal Medicine; Referring Provider Internal Medicine; Visit Provider Nurse Practitioner Adult Health
DX: Z48.298 Encounter for aftercare following other organ transplant (principal); Z79.899 Other long term (current) drug therapy; Z94.4 Liver transplant status
CPT/HCPCS: 36415; 80053; 80076; 80197; 82977; 83735; 84100; 85025; 85610; 87497

== ENCOUNTER → 2025-07-31 06:43 | Outpatient (CLI) | payer MEDICARE, OTHER, SELFPAY ==
[2025-07-31 07:52] LABS: Add Manual Diff / Slide Review NO; Hematocrit 36.8 % (41-53); Hemoglobin 12.2 g/dL (13.5-17.5); Lymphocytes Absolute Auto 1000 /uL (1100-4500); Mean Corpuscular HGB Conc 33.0 % (30-36); Mean Corpuscular Hemoglobin 29.5 PG (26-34); Mean Corpuscular Volume 89.4 fL (80-100); Platelet Count 140 X10^3/uL (150-400)
[2025-07-31 08:09] LABS: INR 1.1 (0.9-1.3); Prothrombin Time 12.2 SECONDS (9.4-12.5)
[2025-07-31 08:15] LABS: Alanine Aminotransferase 19 IU/L (<50); Albumin 4.2 g/dL (3.5-5.0); Albumin Globulin Ratio 1.6 (1.0-2.8); Alkaline Phosphatase 64 U/L (38-126); Blood Urea Nitrogen 31 mg/dL (9-20); Calcium 9.4 mg/dL (8.4-10.2); Carbon Dioxide 24 mmol/L (22-32); Chloride 107 mmol/L (98-107); Estimated Glomerular Filt Rate > 60 mL/min (>60); Gamma Glutamyl Transpeptidase 18 U/L (15-73); Globulin 2.6 g/dL (1.7-4.1); Glucose 115 mg/dL (70-99); HEMOLYSIS < 15 (0-50); Magnesium 1.5 mg/dL (1.6-2.3); Phosphorous 3.9 mg/dL (2.3-3.7); Potassium 4.1 mmol/L (3.4-5.1); Sodium 141 mmol/L (137-145); Total Protein 6.8 g/dL (6.3-8.2)
[2025-08-02 12:36] LABS: CMV DNA, Quant Real Time PCR Negative (Negative)
== END ==
PROVIDERS: PCP Internal Medicine; Referring Provider Nurse Practitioner Adult Health; Visit Provider Nurse Practitioner Adult Health
DX: Z48.298 Encounter for aftercare following other organ transplant (principal); Z79.899 Other long term (current) drug therapy; Z94.4 Liver transplant status
CPT/HCPCS: 36415; 80053; 80076; 80197; 82977; 83735; 84100; 85025; 85610; 87497

== ENCOUNTER 2025-08-03 14:30 | Outpatient (RCR) | payer MEDICARE, OTHER, SELFPAY ==
--- NOTE | 2025-05-16 10:49 | PT.OPPOC ---
Physical, Occupational & Speech Therapy At [facility] Current Diagnoses Sciatica, right side (05/16/25) Visit Care Team Role Provider Type Humberto Triana MD Attending Provider Physician Primary Care Provider Referring Provider Specialty: Internal Medicine Address: [address] [place] [address], [id number] Email: [email or web address] Plan Of Care PT-OP-B Current Condition Start: 05/16/25 09:52 Freq: Status: Active Protocol: Document 05/16/25 09:53 DATA OPERATIONS DIRECTOR (Rec: 05/16/25 10:48 DATA OPERATIONS DIRECTOR Laptop) Current Condition History of Current Condition Onset Date January 2025 Current Complaints R sciatica down to calf and big toe History of Current Pt amb into session with spouse impaired gait pattern. Condition L DARIAN 12/25/24 and went through PT and healed well. Pt reports one day about mid-late January 2025 when he was out golfing he began hurting on R hip down to calf with numbness to great toe. Pt reports minimal pain to central low back, more pain to R glute, and most pain to R post/lat calf. Pt reports sitting does not bother him but pain increases when standing and moving and is very difficult to WB through RLE and stand up straight. Had a liver transplant 04/06/25 and therefore was unable to treat sciatica symptoms over past few months while recovering, however medical team wants him to increase activity as part of continued rehab from transplant and has been very limited. Pt reports he will have an evaluation on Wednesday for his back to plan along side liver transplant team for infection prevention to discuss options: cortisone shot vs surgery. Takes pain meds scheduled daily for pain control. Has 1 step into house, reports he has been managing that fairly. Prior Treatments and ~30 days ago had liver transplant Tests Recent MRI impression reveals severe central canal stenosis at L4-5 Treatment Goals Patient/Caregiver To be able to move better without pain and return to Goals golfing PT-OP-T Assessment and Plan Start: 05/16/25 09:52 Freq: Status: Active Protocol: Document 05/16/25 09:53 DATA OPERATIONS DIRECTOR (Rec: 05/16/25 10:48 DATA OPERATIONS DIRECTOR Laptop) Physical Therapy Assessment Rehab Potential Rehabilitation Good Potential Evaluation Complexity Number of Personal 3 or More Factors/ Comorbidities Number of Body 3 Systems Impaired Clinical Stable Presentation at Evaluation Goals 4 Impairment Pain with functional activities Impairment poor activity tolerance with amb d/t pain Short Term Goal (STG Pt will amb for 5 mins on even surface with or without ) AD without rest break to demonstrate improved activity tolerance. STG Duration 6 weeks Usp Goal (LTG) Pt will report ability to play 12 hole golf x1 session with pain no higher than 3/10 in order to return to hobby. LTG Duration 12 weeks 3 Impairment HEP Short Term Goal (STG Pt will demonstrate ind with progressive HEP program at ) least 1x/day, 5 days/wk, for at least 3 weeks in order to progress towards LTGs. STG Duration 6 weeks 2 Impairment BLE strength Impairment On eval: R hip ext 2+, hip abd 3- L hip ext 3-, hip abd 3 Ditch Repairer Goal (LTG) Pt will improve B hip strength of hip ext and hip abd to at least 4/5 without pain to improve function. LTG Duration 12 weeks 1 Impairment LEFS Impairment On eval: 23/80 71% impaired Ditch Repairer Goal (LTG) Pt will improve LEFS score from 23/80 to at least 60/80 to demonstrate improved function. LTG Duration 12 weeks Assessment Summary Assessment Pt presents central canal stenosis at L4-L5 complicated by complex history of L DARIAN earlier this year and liver transplant a month ago. His recovery after transplant has been complicated by pain down R leg and poor endurance with walking and standing. Pt found to have impaired gait pattern d/t pain, decreased strength to B hips, soft tissue impairments to B lumbar spine and R glutes and piriformis, decreased activity tolerance, and significant R sided neural tension. Pt will highly benefit from skilled PT intervention to address impairments and improve functional mobility, recovery from liver transplant, and return to hobby of golf. Physical Therapy Plan Frequency and Duration Frequency of 1-2x/wk Treatment Duration of 12 treatment (weeks) Plan of Care Start 05/16/25 Date Plan of Care End 08/08/25 Date Therapeutic Interventions Therapeutic Balance Training,Gait Training,Home Exercise Program, Interventions Joint Mobilizations,Manual Therapy,Neuromuscular Re- education,Patient/Caregiver Education,Soft Tissue Mobilization,Therapeutic Activities,Therapeutic Exercises Modalities Cold Pack/Ice Massage,Electric Stimulation,Hot Packs, Iontophoresis,Traction- Mechanical,Ultrasound Next Visit Focus/Plan Next Note Type Treatment Note Next Visit Plan PPT, review HEP, gentle supine hip strengthening, gentle piriformis stretch Plan of Care Dates Plan of Care Start Date 05/16/25 Plan of Care End Date 08/08/25 Electronically Signed by: Juliette Pang, PT 05/17/25 [id number] If you are in agreement with this Plan of Care, please return a signed and dated copy. I have reviewed this Plan of Care and certify that the skilled therapy services above are required to meet the patient?s needs. Physician Signature Date Printed Name and Credentials Clinical Instructor Signature Printed Name and Credentials
--- NOTE | 2025-05-16 17:00 | PT.OIE ---
Current Diagnoses Sciatica, right side (05/16/25) Past Medical History (Last Updated 04/25/25 @ 09:58 by Humberto Triana MD) Allergic rhinitis BPH w urinary obs/LUTS Coronary artery calcification seen on CT scan Essential hypertension Gout Hepatitis B and delta, chronic History of alcohol use disorder History of colonic polyps History of hepatocellular carcinoma Hypertension Mixed hyperlipidemia Overweight Primary osteoarthritis involving multiple joints Sciatica, right side Tobacco use disorder Past Surgical History (Last Updated 04/25/25 @ 09:53 by Humberto Triana MD) Liver transplant status (04/05/25) S/p revision of left total hip S/P total hip resurfacing Visit Care Team Role Provider Type Humberto Triana MD Attending Provider Physician Primary Care Provider Referring Provider Specialty: Internal Medicine Address: [address] [place] [address], [facility] Email: [email or web address] Physical Therapy Initial Evaluation PT-OP-A Visit Information Start: 05/16/25 09:52 Freq: Status: Active Protocol: Document 05/16/25 09:53 SR. VENDOR MANAGEMENT ASSOCIATE (Rec: 05/16/25 10:48 SR. VENDOR MANAGEMENT ASSOCIATE Laptop) Out-Patient Physical Therapy Visit Information Visit Information Visit Type Initial Evaluation Visit Start Time 09:50 Visit Stop Time 10:45 Visit Number 1 Number of FUEL AGENT Visits 0 Evaluation Information Evaluation Date 05/16/25 PT-OP-B Current Condition Start: 05/16/25 09:52 Freq: Status: Active Protocol: Document 05/16/25 09:53 SR. VENDOR MANAGEMENT ASSOCIATE (Rec: 05/16/25 10:48 SR. VENDOR MANAGEMENT ASSOCIATE Laptop) Current Condition History of Current Condition Onset Date January 2025 Current Complaints R sciatica down to calf and big toe History of Current Pt amb into session with spouse impaired gait pattern. Condition L DARIAN 12/25/24 and went through PT and healed well. Pt reports one day about mid-late January 2025 when he was out golfing he began hurting on R hip down to calf with numbness to great toe. Pt reports minimal pain to central low back, more pain to R glute, and most pain to R post/lat calf. Pt reports sitting does not bother him but pain increases when standing and moving and is very difficult to WB through RLE and stand up straight. Had a liver transplant 04/06/25 and therefore was unable to treat sciatica symptoms over past few months while recovering, however medical team wants him to increase activity as part of continued rehab from transplant and has been very limited. Pt reports he will have an evaluation on Wednesday for his back to plan along side liver transplant team for infection prevention to discuss options: cortisone shot vs surgery. Takes pain meds scheduled daily for pain control. Has 1 step into house, reports he has been managing that fairly. Prior Treatments and ~30 days ago had liver transplant Tests Recent MRI impression reveals severe central canal stenosis at L4-5 Treatment Goals Patient/Caregiver To be able to move better without pain and return to Goals golfing PT-OP-C Subjective Start: 05/16/25 09:52 Freq: Status: Active Protocol: Document 05/16/25 09:53 SR. VENDOR MANAGEMENT ASSOCIATE (Rec: 05/17/25 08:02 SR. VENDOR MANAGEMENT ASSOCIATE Laptop) Patient Questionnaires Lower Extremity Functional Scale LEFS Score 23/80 LEFS Impairment 60 to 79% Impaired (Score 17-31) Oswestry Low Back Index Oswestry Score 24/50, 48% Oswestry Impairment 40 to 59% Impaired (Score 40-59) PT-OP-F Manual Assessment Start: 05/16/25 09:52 Freq: Status: Active Protocol: Document 05/16/25 09:53 SR. VENDOR MANAGEMENT ASSOCIATE (Rec: 05/17/25 08:02 SR. VENDOR MANAGEMENT ASSOCIATE Laptop) Manual Assessments Other Manual Assessments Other Manual checked in L sidelying: TTP and decreased soft tissue Assessments mobility to B lumbar paraspinals R>L, R glute med and max, and R piriformis PT-OP-G Mobility & Gait Start: 05/16/25 09:52 Freq: Status: Active Protocol: Document 05/16/25 09:53 SR. VENDOR MANAGEMENT ASSOCIATE (Rec: 05/17/25 08:02 SR. VENDOR MANAGEMENT ASSOCIATE Laptop) OP Gait Assessment Comments Gait Comments significant forward flexed posture at hips and lumbar spine, antalgic pattern with decreased stance time on RLE/quick step of LLE with uneven step lengths PT-OP-L Special Tests Start: 05/17/25 08:02 Freq: Status: Active Protocol: Document 05/16/25 09:53 SR. VENDOR MANAGEMENT ASSOCIATE (Rec: 05/17/25 08:05 SR. VENDOR MANAGEMENT ASSOCIATE Laptop) Special Tests Other Special Tests Special Tests Positive slump test, exacerbated with RLE knee ext and DF PT-OP-M Strength Start: 05/16/25 09:52 Freq: Status: Active Protocol: Document 05/16/25 09:53 SR. VENDOR MANAGEMENT ASSOCIATE (Rec: 05/16/25 10:48 SR. VENDOR MANAGEMENT ASSOCIATE Laptop) Hip Strength Hip Manual Muscle Testing R Flexion (L2) 4+ Good+ Extension (S1) 2+ Poor+ Abduction 3- Fair- Comments limited in ext and abd by pain in R hip, ext tested in sidelying L Flexion (L2) 4 Good Extension (S1) 3- Fair- Abduction 3 Fair Comments limited in ext and abd by pain in R hip, ext tested in sidelying Knee Strength Knee Manual Muscle Testing R Flexion (S2) 5 Normal Extension (L3) 5 Normal L Flexion (S2) 4+ Good+ Extension (L3) 4+ Good+ Ankle/Foot Strength Ankle and Foot Manual Muscle Testing R Dorsiflexion (L4) 4 Good L Dorsiflexion (L4) 4+ Good+ PT-OP-Q Treatments Start: 05/16/25 09:52 Freq: Status: Active Protocol: Document 05/16/25 09:53 SR. VENDOR MANAGEMENT ASSOCIATE (Rec: 05/17/25 07:51 SR. VENDOR MANAGEMENT ASSOCIATE Laptop) Therapeutic Exercises Supine Exercises SKTOC Supine Exercise Name single knee to opposite chest Side bilateral Reps/Minutes 1 min each Comments Added to HEP with HO, no pain SKTC Supine Exercise Name single knee to chest Side bilateral Reps/Minutes 1 min each Comments Added to HEP with HO, no pain DKTC Supine Exercise Name double knee to chest Side bilateral Reps/Minutes 1 min Comments Added to HEP with HO, no pain Therapeutic Activity Therapeutic Activity Stenosis edu Name Edu on central canal stenosis, activities that make better and worse Reps/Minutes 10 Comments flexion based activities vs extension based activities PT-OP-T Assessment and Plan Start: 05/16/25 09:52 Freq: Status: Active Protocol: Document 05/16/25 09:53 SR. VENDOR MANAGEMENT ASSOCIATE (Rec: 05/16/25 10:48 SR. VENDOR MANAGEMENT ASSOCIATE Laptop) Physical Therapy Assessment Rehab Potential Rehabilitation Good Potential Evaluation Complexity Number of Personal 3 or More Factors/ Comorbidities Number of Body 3 Systems Impaired Clinical Stable Presentation at Evaluation Goals 4 Impairment Pain with functional activities Impairment poor activity tolerance with amb d/t pain Short Term Goal (STG Pt will amb for 5 mins on even surface with or without ) AD without rest break to demonstrate improved activity tolerance. STG Duration 6 weeks Assisted Goal (LTG) Pt will report ability to play 12 hole golf x1 session with pain no higher than 3/10 in order to return to hobby. LTG Duration 12 weeks 3 Impairment HEP Short Term Goal (STG Pt will demonstrate ind with progressive HEP program at ) least 1x/day, 5 days/wk, for at least 3 weeks in order to progress towards LTGs. STG Duration 6 weeks 2 Impairment BLE strength Impairment On eval: R hip ext 2+, hip abd 3- L hip ext 3-, hip abd 3 Assisted Goal (LTG) Pt will improve B hip strength of hip ext and hip abd to at least 4/5 without pain to improve function. LTG Duration 12 weeks 1 Impairment LEFS Impairment On eval: 23/80 71% impaired Assisted Goal (LTG) Pt will improve LEFS score from 23/80 to at least 60/80 to demonstrate improved function. LTG Duration 12 weeks Assessment Summary Assessment Pt presents central canal stenosis at L4-L5 complicated by complex history of L DARIAN earlier this year and liver transplant a month ago. His recovery after transplant has been complicated by pain down R leg and poor endurance with walking and standing. Pt found to have impaired gait pattern d/t pain, decreased strength to B hips, soft tissue impairments to B lumbar spine and R glutes and piriformis, decreased activity tolerance, and significant R sided neural tension. Pt will highly benefit from skilled PT intervention to address impairments and improve functional mobility, recovery from liver transplant, and return to hobby of golf. Physical Therapy Plan Frequency and Duration Frequency of 1-2x/wk Treatment Duration of 12 treatment (weeks) Plan of Care Start 05/16/25 Date Plan of Care End 08/08/25 Date Therapeutic Interventions Therapeutic Balance Training,Gait Training,Home Exercise Program, Interventions Joint Mobilizations,Manual Therapy,Neuromuscular Re- education,Patient/Caregiver Education,Soft Tissue Mobilization,Therapeutic Activities,Therapeutic Exercises Modalities Cold Pack/Ice Massage,Electric Stimulation,Hot Packs, Iontophoresis,Traction- Mechanical,Ultrasound Next Visit Focus/Plan Next Note Type Treatment Note Next Visit Plan PPT, review HEP, gentle supine hip strengthening, gentle piriformis stretch
--- NOTE | 2025-05-17 12:51 | PT.OTN ---
Current Diagnoses Sciatica, right side (05/17/25) Physical Therapy Treatment Note PT-OP-A Visit Information Start: 05/16/25 09:52 Freq: Status: Active Protocol: Document 05/17/25 11:43 POWERHOUSE OPERATOR (Rec: 05/17/25 12:50 POWERHOUSE OPERATOR Laptop) Out-Patient Physical Therapy Visit Information Visit Information Visit Type Treatment Note Visit Start Time 11:37 Visit Stop Time 12:24 Visit Number 2 Number of DENTAL EQUIPMENT TECHNICIAN Visits 0 Evaluation Information Evaluation Date 05/16/25 PT-OP-B Current Condition Start: 05/16/25 09:52 Freq: Status: Active Protocol: Document 05/16/25 09:53 POWERHOUSE OPERATOR (Rec: 05/16/25 10:48 POWERHOUSE OPERATOR Laptop) Current Condition History of Current Condition Onset Date January 2025 Current Complaints R sciatica down to calf and big toe History of Current Pt amb into session with spouse impaired gait pattern. Condition L DARIAN 12/25/24 and went through PT and healed well. Pt reports one day about mid-late January 2025 when he was out golfing he began hurting on R hip down to calf with numbness to great toe. Pt reports minimal pain to central low back, more pain to R glute, and most pain to R post/lat calf. Pt reports sitting does not bother him but pain increases when standing and moving and is very difficult to WB through RLE and stand up straight. Had a liver transplant 04/06/25 and therefore was unable to treat sciatica symptoms over past few months while recovering, however medical team wants him to increase activity as part of continued rehab from transplant and has been very limited. Pt reports he will have an evaluation on Wednesday for his back to plan along side liver transplant team for infection prevention to discuss options: cortisone shot vs surgery. Takes pain meds scheduled daily for pain control. Has 1 step into house, reports he has been managing that fairly. Prior Treatments and ~30 days ago had liver transplant Tests Recent MRI impression reveals severe central canal stenosis at L4-5 Treatment Goals Patient/Caregiver To be able to move better without pain and return to Goals golfing PT-OP-C Subjective Start: 05/16/25 09:52 Freq: Status: Active Protocol: Document 05/17/25 11:43 POWERHOUSE OPERATOR (Rec: 05/17/25 12:50 POWERHOUSE OPERATOR Laptop) OP-PT Subjective Patient Comments Patient Comments Pt ambs into session today with same antalgic gait pattern d/t RLE pain from low back into calf currently at 6-7/10. Pt reports he tried HEP stretches this morning on floor but was unable to get up from floor. Sent message to yesterday asking about clearance for laying on stomach, is waiting reply. PT-OP-F Manual Assessment Start: 05/16/25 09:52 Freq: Status: Active Protocol: Document 05/16/25 09:53 POWERHOUSE OPERATOR (Rec: 05/17/25 08:02 POWERHOUSE OPERATOR Laptop) Manual Assessments Other Manual Assessments Other Manual checked in L sidelying: TTP and decreased soft tissue Assessments mobility to B lumbar paraspinals R>L, R glute med and max, and R piriformis PT-OP-G Mobility & Gait Start: 05/16/25 09:52 Freq: Status: Active Protocol: Document 05/16/25 09:53 POWERHOUSE OPERATOR (Rec: 05/17/25 08:02 POWERHOUSE OPERATOR Laptop) OP Gait Assessment Comments Gait Comments significant forward flexed posture at hips and lumbar spine, antalgic pattern with decreased stance time on RLE/quick step of LLE with uneven step lengths PT-OP-L Special Tests Start: 05/17/25 08:02 Freq: Status: Active Protocol: Document 05/16/25 09:53 POWERHOUSE OPERATOR (Rec: 05/17/25 08:05 POWERHOUSE OPERATOR Laptop) Special Tests Other Special Tests Special Tests Positive slump test, exacerbated with RLE knee ext and DF PT-OP-M Strength Start: 05/16/25 09:52 Freq: Status: Active Protocol: Document 05/16/25 09:53 POWERHOUSE OPERATOR (Rec: 05/16/25 10:48 POWERHOUSE OPERATOR Laptop) Hip Strength Hip Manual Muscle Testing R Flexion (L2) 4+ Good+ Extension (S1) 2+ Poor+ Abduction 3- Fair- Comments limited in ext and abd by pain in R hip, ext tested in sidelying L Flexion (L2) 4 Good Extension (S1) 3- Fair- Abduction 3 Fair Comments limited in ext and abd by pain in R hip, ext tested in sidelying Knee Strength Knee Manual Muscle Testing R Flexion (S2) 5 Normal Extension (L3) 5 Normal L Flexion (S2) 4+ Good+ Extension (L3) 4+ Good+ Ankle/Foot Strength Ankle and Foot Manual Muscle Testing R Dorsiflexion (L4) 4 Good L Dorsiflexion (L4) 4+ Good+ PT-OP-Q Treatments Start: 05/16/25 09:52 Freq: Status: Active Protocol: Document 05/17/25 11:43 POWERHOUSE OPERATOR (Rec: 05/17/25 12:50 POWERHOUSE OPERATOR Laptop) Therapeutic Exercises Supine Exercises PPT Reps/Minutes 10x2 SKTOC Supine Exercise Name single knee to opposite chest Side bilateral Reps/Minutes 1 min x3 Comments HEP review SKTC Supine Exercise Name single knee to chest Side bilateral Reps/Minutes 1 min x3 Comments HEP review DKTC Supine Exercise Name double knee to chest Side bilateral Reps/Minutes 1 min x3 Comments HEP review Therapeutic Activity Therapeutic Activity Supine<>sit Name via log roll Reps/Minutes x3 each Comments educated on log roll and keeping B knees bent, able to perform without cueing Gait Training Gait Activity 4WW Level of Assistance ind Surface even Distance/Duration 150 Treatment Focus reduce pain, improve gait pattern and endurance Comments Pt has a 4WW at home, recommended use of 4WW at all times for gait until weaned by therapist. Improved upright posture although not fully upright yet d/t pain, improved endurance with reduced pain to RLE, improved B stance time and step lengths. SPC Surface even Distance/Duration 50 Comments SPC trial, did not improve pain or gait pattern although steady. PT-OP-T Assessment and Plan Start: 05/16/25 09:52 Freq: Status: Active Protocol: Document 05/17/25 11:43 POWERHOUSE OPERATOR (Rec: 05/17/25 12:50 POWERHOUSE OPERATOR Laptop) Physical Therapy Assessment Goals 4 Impairment Pain with functional activities Impairment poor activity tolerance with amb d/t pain Short Term Goal (STG Pt will amb for 5 mins on even surface with or without ) AD without rest break to demonstrate improved activity tolerance. STG Duration 6 weeks Long-Term Goal (LTG) Pt will report ability to play 12 hole golf x1 session with pain no higher than 3/10 in order to return to hobby. LTG Duration 12 weeks 3 Impairment HEP Short Term Goal (STG Pt will demonstrate ind with progressive HEP program at ) least 1x/day, 5 days/wk, for at least 3 weeks in order to progress towards LTGs. STG Duration 6 weeks 2 Impairment BLE strength Impairment On eval: R hip ext 2+, hip abd 3- L hip ext 3-, hip abd 3 Long-Term Goal (LTG) Pt will improve B hip strength of hip ext and hip abd to at least 4/5 without pain to improve function. LTG Duration 12 weeks 1 Impairment LEFS Impairment On eval: 23/80 71% impaired Long-Term Goal (LTG) Pt will improve LEFS score from 23/80 to at least 60/80 to demonstrate improved function. LTG Duration 12 weeks Assessment Summary Assessment Pt with 6-7/10 pain with ambulation into session, increased to 7-8/10 with transition sit>supine for exercises, reduced to 2-3/10 pain with HEP stretches. Pt able to maintain reduced pain with supine<>sit with log roll technique and with amb with 4WW but immediately increases back to original pain number once walking out of session without AD. Will see if able to maintain reduced pain at next session when pt brings his 4WW from home and able to walk out of session with it. Physical Therapy Plan Frequency and Duration Frequency of 1-2x/wk Treatment Duration of 12 treatment (weeks) Plan of Care Start 05/16/25 Date Plan of Care End 08/08/25 Date Therapeutic Interventions Therapeutic Balance Training,Gait Training,Home Exercise Program, Interventions Joint Mobilizations,Manual Therapy,Neuromuscular Re- education,Patient/Caregiver Education,Soft Tissue Mobilization,Therapeutic Activities,Therapeutic Exercises Modalities Cold Pack/Ice Massage,Electric Stimulation,Hot Packs, Iontophoresis,Traction- Mechanical,Ultrasound Next Visit Focus/Plan Next Note Type Treatment Note Next Visit Plan review PPT and breathing and progress as tolerated, gentle supine hip strengthening in pain free range with HEP HO, gentle piriformis stretch
--- NOTE | 2025-05-23 16:56 | PT.OTN ---
Current Diagnoses Sciatica, right side (05/23/25) Physical Therapy Treatment Note PT-OP-A Visit Information Start: 05/16/25 09:52 Freq: Status: Active Protocol: Document 05/23/25 13:20 NBM (Rec: 05/23/25 16:54 NBM Laptop) Out-Patient Physical Therapy Visit Information Visit Information Visit Type Treatment Note Visit Start Time 13:08 Visit Stop Time 13:48 Visit Number 3 Number of WATCH REPAIRER Visits 1 Evaluation Information Evaluation Date 05/16/25 PT-OP-B Current Condition Start: 05/16/25 09:52 Freq: Status: Active Protocol: Document 05/16/25 09:53 ACCOUNT DEVELOPMENT SPECIALIST (Rec: 05/16/25 10:48 ACCOUNT DEVELOPMENT SPECIALIST Laptop) Current Condition History of Current Condition Onset Date January 2025 Current Complaints R sciatica down to calf and big toe History of Current Pt amb into session with spouse impaired gait pattern. Condition L DARIAN 12/25/24 and went through PT and healed well. Pt reports one day about mid-late January 2025 when he was out golfing he began hurting on R hip down to calf with numbness to great toe. Pt reports minimal pain to central low back, more pain to R glute, and most pain to R post/lat calf. Pt reports sitting does not bother him but pain increases when standing and moving and is very difficult to WB through RLE and stand up straight. Had a liver transplant 04/06/25 and therefore was unable to treat sciatica symptoms over past few months while recovering, however medical team wants him to increase activity as part of continued rehab from transplant and has been very limited. Pt reports he will have an evaluation on Wednesday for his back to plan along side liver transplant team for infection prevention to discuss options: cortisone shot vs surgery. Takes pain meds scheduled daily for pain control. Has 1 step into house, reports he has been managing that fairly. Prior Treatments and ~30 days ago had liver transplant Tests Recent MRI impression reveals severe central canal stenosis at L4-5 Treatment Goals Patient/Caregiver To be able to move better without pain and return to Goals golfing PT-OP-C Subjective Start: 05/16/25 09:52 Freq: Status: Active Protocol: Document 05/23/25 13:20 NBM (Rec: 05/23/25 16:54 NBM Laptop) OP-PT Subjective Patient Comments Patient Comments Dawson reports he has a spinal injection scheduled . Yesterday constipation was an issue so he took a break from the pain pill which he feels he has to when this happens. He woke up with more pain this morning in R hip and down leg and outside leg hurts more than anything, especially if I'm trying to stand on it for any length of time. Pain pill helped and changed position. Liver transplant team says okay to lay on stomach. PT-OP-F Manual Assessment Start: 05/16/25 09:52 Freq: Status: Active Protocol: Document 05/16/25 09:53 ACCOUNT DEVELOPMENT SPECIALIST (Rec: 05/17/25 08:02 ACCOUNT DEVELOPMENT SPECIALIST Laptop) Manual Assessments Other Manual Assessments Other Manual checked in L sidelying: TTP and decreased soft tissue Assessments mobility to B lumbar paraspinals R>L, R glute med and max, and R piriformis PT-OP-G Mobility & Gait Start: 05/16/25 09:52 Freq: Status: Active Protocol: Document 05/16/25 09:53 ACCOUNT DEVELOPMENT SPECIALIST (Rec: 05/17/25 08:02 ACCOUNT DEVELOPMENT SPECIALIST Laptop) OP Gait Assessment Comments Gait Comments significant forward flexed posture at hips and lumbar spine, antalgic pattern with decreased stance time on RLE/quick step of LLE with uneven step lengths PT-OP-L Special Tests Start: 05/17/25 08:02 Freq: Status: Active Protocol: Document 05/16/25 09:53 ACCOUNT DEVELOPMENT SPECIALIST (Rec: 05/17/25 08:05 ACCOUNT DEVELOPMENT SPECIALIST Laptop) Special Tests Other Special Tests Special Tests Positive slump test, exacerbated with RLE knee ext and DF PT-OP-M Strength Start: 05/16/25 09:52 Freq: Status: Active Protocol: Document 05/16/25 09:53 ACCOUNT DEVELOPMENT SPECIALIST (Rec: 05/16/25 10:48 ACCOUNT DEVELOPMENT SPECIALIST Laptop) Hip Strength Hip Manual Muscle Testing R Flexion (L2) 4+ Good+ Extension (S1) 2+ Poor+ Abduction 3- Fair- Comments limited in ext and abd by pain in R hip, ext tested in sidelying L Flexion (L2) 4 Good Extension (S1) 3- Fair- Abduction 3 Fair Comments limited in ext and abd by pain in R hip, ext tested in sidelying Knee Strength Knee Manual Muscle Testing R Flexion (S2) 5 Normal Extension (L3) 5 Normal L Flexion (S2) 4+ Good+ Extension (L3) 4+ Good+ Ankle/Foot Strength Ankle and Foot Manual Muscle Testing R Dorsiflexion (L4) 4 Good L Dorsiflexion (L4) 4+ Good+ PT-OP-Q Treatments Start: 05/16/25 09:52 Freq: Status: Active Protocol: Document 05/23/25 13:20 NBM (Rec: 05/23/25 16:54 NBM Laptop) Therapeutic Exercises Supine Exercises PPT Supine Exercise Name added to HEP: 1. TrA focus 2. TrA w/ PPT 3. w/ alt BKFO Side bilateral Equipment Used pt i/s in self-monitoring TrA medial to ASIS Reps/Minutes 10 x2 breathcylces ea Comments initial tactile cues for PPT, heavy cues for breath. Gait Training Gait Activity 4WW Level of Assistance ind Surface even Distance/Duration 150 Treatment Focus reduce pain, improve gait pattern and endurance Comments Improved upright posture and pain end of session following cues for TrA, PPT, gluteal activation and proximation. Self-Care/Home Management Treatment Education Patient Education Body Mechanics,Home Exercise Program,Posture Other Education -verbal review of stretching HEP with emphasis on breathwork and painfree range. -Edu to pt w/ visual aids re: TrA m. anatomy and interrelationship with diaphragm and pelvic floor, possible relationship to LBP and sciatica symptoms down R leg, and importance of not holding breath with exercises and activities. Pt i/s in self-monitoring TrA activation in hooklying. -Postural education w/ gait using 4WW for TrA activation, PPT, gluteal activation and proximation (pt is able to perform w/ cues painfree ambulating out of clinic end of session). -edu w/ visual aids for use of cane on contralateral side of affected lower extremity. -Edu for constipation strategies: foot stool, breathwork, hydration, and consider leaving toilet to walk/drink water and try again as needed to recondition brain/gut pathway for pelvic relaxation. emphasis on not holding breath. -Added progressive core ex's to HEP: TrA activation, TrA w/ PPT, BKFO - HO given. PT-OP-T Assessment and Plan Start: 05/16/25 09:52 Freq: Status: Active Protocol: Document 05/23/25 13:20 NBM (Rec: 05/23/25 16:54 NBM Laptop) Physical Therapy Assessment Goals 4 Impairment Pain with functional activities Impairment poor activity tolerance with amb d/t pain Short Term Goal (STG Pt will amb for 5 mins on even surface with or without ) AD without rest break to demonstrate improved activity tolerance. STG Duration 6 weeks Mcc Goal (LTG) Pt will report ability to play 12 hole golf x1 session with pain no higher than 3/10 in order to return to hobby. LTG Duration 12 weeks 3 Impairment HEP Short Term Goal (STG Pt will demonstrate ind with progressive HEP program at ) least 1x/day, 5 days/wk, for at least 3 weeks in order to progress towards LTGs. STG Duration 6 weeks 2 Impairment BLE strength Impairment On eval: R hip ext 2+, hip abd 3- L hip ext 3-, hip abd 3 Complaint Investigations Officer Goal (LTG) Pt will improve B hip strength of hip ext and hip abd to at least 4/5 without pain to improve function. LTG Duration 12 weeks 1 Impairment LEFS Impairment On eval: 23/80 71% impaired Mcc Goal (LTG) Pt will improve LEFS score from 23/80 to at least 60/80 to demonstrate improved function. LTG Duration 12 weeks Assessment Summary Assessment Dawson presents with 4WW today with flexion bias during ambulation. Treatment focus on self-care and progressive core exercises for HEP, and requires heavy cues for breathwork and tactile cues initially for PPT. He demonstrates weak Transverse abdominis m. recruitment and is educated w/ visual aids on TrA m. anatomy and interrelationship with diaphragm and pelvic floor, and importance of not using breath holding compensation pattern, and relationship to low back pain and sciatica. Visual aids used to explain why cane should be used on contralateral side of weaker lower extremity. He is also educated on ways to address constipation complicated with opioids. End of session pt demos improved upright posture painfree with cues for TrA, gluteal activation and proximation to 4WW. Physical Therapy Plan Frequency and Duration Frequency of 1-2x/wk Treatment Duration of 12 treatment (weeks) Plan of Care Start 05/16/25 Date Plan of Care End 08/08/25 Date Therapeutic Interventions Therapeutic Balance Training,Gait Training,Home Exercise Program, Interventions Joint Mobilizations,Manual Therapy,Neuromuscular Re- education,Patient/Caregiver Education,Soft Tissue Mobilization,Therapeutic Activities,Therapeutic Exercises Modalities Cold Pack/Ice Massage,Electric Stimulation,Hot Packs, Iontophoresis,Traction- Mechanical,Ultrasound Next Visit Focus/Plan Next Note Type Treatment Note Next Visit Plan review PPT and breathing and progress as tolerated, gentle supine hip strengthening in pain free range with HEP HO, gentle piriformis stretch
--- NOTE | 2025-05-30 20:49 | PT.OTN ---
Current Diagnoses Sciatica, right side (05/30/25) Physical Therapy Treatment Note PT-OP-A Visit Information Start: 05/16/25 09:52 Freq: Status: Active Protocol: Document 05/30/25 10:53 PLANT ASSOCIATE (Rec: 05/30/25 11:36 PLANT ASSOCIATE Laptop) Out-Patient Physical Therapy Visit Information Visit Information Visit Type Treatment Note Visit Start Time 10:53 Visit Stop Time 11:33 Visit Number 4 Number of AVIATION TECHNICIAN AIRCRAFT Visits 0 Evaluation Information Evaluation Date 05/16/25 PT-OP-B Current Condition Start: 05/16/25 09:52 Freq: Status: Active Protocol: Document 05/16/25 09:53 PLANT ASSOCIATE (Rec: 05/16/25 10:48 PLANT ASSOCIATE Laptop) Current Condition History of Current Condition Onset Date January 2025 Current Complaints R sciatica down to calf and big toe History of Current Pt amb into session with spouse impaired gait pattern. Condition L DARIAN 12/25/24 and went through PT and healed well. Pt reports one day about mid-late January 2025 when he was out golfing he began hurting on R hip down to calf with numbness to great toe. Pt reports minimal pain to central low back, more pain to R glute, and most pain to R post/lat calf. Pt reports sitting does not bother him but pain increases when standing and moving and is very difficult to WB through RLE and stand up straight. Had a liver transplant 04/06/25 and therefore was unable to treat sciatica symptoms over past few months while recovering, however medical team wants him to increase activity as part of continued rehab from transplant and has been very limited. Pt reports he will have an evaluation on Wednesday for his back to plan along side liver transplant team for infection prevention to discuss options: cortisone shot vs surgery. Takes pain meds scheduled daily for pain control. Has 1 step into house, reports he has been managing that fairly. Prior Treatments and ~30 days ago had liver transplant Tests Recent MRI impression reveals severe central canal stenosis at L4-5 Treatment Goals Patient/Caregiver To be able to move better without pain and return to Goals golfing PT-OP-C Subjective Start: 05/16/25 09:52 Freq: Status: Active Protocol: Document 05/30/25 10:53 PLANT ASSOCIATE (Rec: 05/30/25 11:36 PLANT ASSOCIATE Laptop) OP-PT Subjective Patient Comments Patient Comments Pt reports he did too much walking this weekend with his walker and therefore had increased pain and was unable to practice his HEP. Current pain sitting at rest is 2/10, walking with walker is 6/10. PT-OP-F Manual Assessment Start: 05/16/25 09:52 Freq: Status: Active Protocol: Document 05/16/25 09:53 PLANT ASSOCIATE (Rec: 05/17/25 08:02 PLANT ASSOCIATE Laptop) Manual Assessments Other Manual Assessments Other Manual checked in L sidelying: TTP and decreased soft tissue Assessments mobility to B lumbar paraspinals R>L, R glute med and max, and R piriformis PT-OP-G Mobility & Gait Start: 05/16/25 09:52 Freq: Status: Active Protocol: Document 05/16/25 09:53 PLANT ASSOCIATE (Rec: 05/17/25 08:02 PLANT ASSOCIATE Laptop) OP Gait Assessment Comments Gait Comments significant forward flexed posture at hips and lumbar spine, antalgic pattern with decreased stance time on RLE/quick step of LLE with uneven step lengths PT-OP-L Special Tests Start: 05/17/25 08:02 Freq: Status: Active Protocol: Document 05/16/25 09:53 PLANT ASSOCIATE (Rec: 05/17/25 08:05 PLANT ASSOCIATE Laptop) Special Tests Other Special Tests Special Tests Positive slump test, exacerbated with RLE knee ext and DF PT-OP-M Strength Start: 05/16/25 09:52 Freq: Status: Active Protocol: Document 05/16/25 09:53 PLANT ASSOCIATE (Rec: 05/16/25 10:48 PLANT ASSOCIATE Laptop) Hip Strength Hip Manual Muscle Testing R Flexion (L2) 4+ Good+ Extension (S1) 2+ Poor+ Abduction 3- Fair- Comments limited in ext and abd by pain in R hip, ext tested in sidelying L Flexion (L2) 4 Good Extension (S1) 3- Fair- Abduction 3 Fair Comments limited in ext and abd by pain in R hip, ext tested in sidelying Knee Strength Knee Manual Muscle Testing R Flexion (S2) 5 Normal Extension (L3) 5 Normal L Flexion (S2) 4+ Good+ Extension (L3) 4+ Good+ Ankle/Foot Strength Ankle and Foot Manual Muscle Testing R Dorsiflexion (L4) 4 Good L Dorsiflexion (L4) 4+ Good+ PT-OP-Q Treatments Start: 05/16/25 09:52 Freq: Status: Active Protocol: Document 05/30/25 10:53 PLANT ASSOCIATE (Rec: 05/30/25 11:36 PLANT ASSOCIATE Laptop) Therapeutic Exercises Supine Exercises PPT Supine Exercise Name 1. PPT with hold 2. PPT hold with alt march Reps/Minutes 1. x5 with hold of 3 inhale/exhale 2. 10x2 marches DKTC Supine Exercise Name double knee to chest Side bilateral Reps/Minutes 3 mins Comments to reduce pain Sitting Exercises Scap retract Sitting Exercise 1. scap depress 2. scap retract 3. combo Name Side bilateral Reps/Minutes 10x2 each Comments mod to min TC Gait Training Gait Activity 4WW Level of Assistance ind Surface even Distance/Duration 150 Treatment Focus reduce B UT activation, upright gaze and posture Comments lowered walker 1 notch, educated on keeping B shoulders down and supporting with elbow ext vs shoulder elevation, safety with transfers keeping in front of him PT-OP-T Assessment and Plan Start: 05/16/25 09:52 Freq: Status: Active Protocol: Document 05/30/25 10:53 PLANT ASSOCIATE (Rec: 05/30/25 11:36 PLANT ASSOCIATE Laptop) Physical Therapy Assessment Goals 4 Impairment Pain with functional activities Impairment poor activity tolerance with amb d/t pain Short Term Goal (STG Pt will amb for 5 mins on even surface with or without ) AD without rest break to demonstrate improved activity tolerance. STG Duration 6 weeks Economic Research Analyst Goal (LTG) Pt will report ability to play 12 hole golf x1 session with pain no higher than 3/10 in order to return to hobby. LTG Duration 12 weeks 3 Impairment HEP Short Term Goal (STG Pt will demonstrate ind with progressive HEP program at ) least 1x/day, 5 days/wk, for at least 3 weeks in order to progress towards LTGs. STG Duration 6 weeks 2 Impairment BLE strength Impairment On eval: R hip ext 2+, hip abd 3- L hip ext 3-, hip abd 3 Economic Research Analyst Goal (LTG) Pt will improve B hip strength of hip ext and hip abd to at least 4/5 without pain to improve function. LTG Duration 12 weeks 1 Impairment LEFS Impairment On eval: 23/80 71% impaired Correction Goal (LTG) Pt will improve LEFS score from 23/80 to at least 60/80 to demonstrate improved function. LTG Duration 12 weeks Assessment Summary Assessment Pt tolerated gait training with 4WW well today with adjustments made to height and scapular strengthening for reduced B UT use and improved posture in gait. Pt also demonstrated improved TA activation but still required cueing for breathing. Physical Therapy Plan Frequency and Duration Frequency of 1-2x/wk Treatment Duration of 12 treatment (weeks) Plan of Care Start 05/16/25 Date Plan of Care End 08/08/25 Date Therapeutic Interventions Therapeutic Balance Training,Gait Training,Home Exercise Program, Interventions Joint Mobilizations,Manual Therapy,Neuromuscular Re- education,Patient/Caregiver Education,Soft Tissue Mobilization,Therapeutic Activities,Therapeutic Exercises Modalities Cold Pack/Ice Massage,Electric Stimulation,Hot Packs, Iontophoresis,Traction- Mechanical,Ultrasound Next Visit Focus/Plan Next Note Type Treatment Note Next Visit Plan review PPT and breathing and progress as tolerated, gentle supine hip strengthening in pain free range with HEP HO, gentle piriformis stretch
--- NOTE | 2025-06-06 16:42 | PT.OTN ---
Current Diagnoses Sciatica, right side (06/06/25) Physical Therapy Treatment Note PT-OP-A Visit Information Start: 05/16/25 09:52 Freq: Status: Active Protocol: Document 06/06/25 11:43 NBM (Rec: 06/06/25 12:39 NBM Laptop) Out-Patient Physical Therapy Visit Information Visit Information Visit Type Treatment Note Visit Start Time 11:40 Visit Stop Time 12:25 Visit Number 5 Number of TECHNICAL BUYER Visits 1 PT-OP-B Current Condition Start: 05/16/25 09:52 Freq: Status: Active Protocol: Document 05/16/25 09:53 ASTRONAUT MISSION SPECIALIST (Rec: 05/16/25 10:48 ASTRONAUT MISSION SPECIALIST Laptop) Current Condition History of Current Condition Onset Date January 2025 Current Complaints R sciatica down to calf and big toe History of Current Pt amb into session with spouse impaired gait pattern. Condition L DARIAN 12/25/24 and went through PT and healed well. Pt reports one day about mid-late January 2025 when he was out golfing he began hurting on R hip down to calf with numbness to great toe. Pt reports minimal pain to central low back, more pain to R glute, and most pain to R post/lat calf. Pt reports sitting does not bother him but pain increases when standing and moving and is very difficult to WB through RLE and stand up straight. Had a liver transplant 04/06/25 and therefore was unable to treat sciatica symptoms over past few months while recovering, however medical team wants him to increase activity as part of continued rehab from transplant and has been very limited. Pt reports he will have an evaluation on Wednesday for his back to plan along side liver transplant team for infection prevention to discuss options: cortisone shot vs surgery. Takes pain meds scheduled daily for pain control. Has 1 step into house, reports he has been managing that fairly. Prior Treatments and ~30 days ago had liver transplant Tests Recent MRI impression reveals severe central canal stenosis at L4-5 Treatment Goals Patient/Caregiver To be able to move better without pain and return to Goals golfing PT-OP-C Subjective Start: 05/16/25 09:52 Freq: Status: Active Protocol: Document 06/06/25 11:43 NBM (Rec: 06/06/25 12:39 NBM Laptop) OP-PT Subjective Patient Comments Patient Comments Dawson reports he forgot walker in other car and woke up dona sore but got better as he moved around the house . He had a cortisone injection in spine on Wednesday, and advised him PT was fine after 24 hours. He has slight discomfort down R leg and toes are still a little numb but it's not like it was. He's able to breathe better since injection. He'd cancelled last due to feeling sick and really terrible and has not done HEP much since. He hasn't needed opioids for pain or stool softener for about 6 days so constipation is much better. PT-OP-F Manual Assessment Start: 05/16/25 09:52 Freq: Status: Active Protocol: Document 05/16/25 09:53 ASTRONAUT MISSION SPECIALIST (Rec: 05/17/25 08:02 ASTRONAUT MISSION SPECIALIST Laptop) Manual Assessments Other Manual Assessments Other Manual checked in L sidelying: TTP and decreased soft tissue Assessments mobility to B lumbar paraspinals R>L, R glute med and max, and R piriformis PT-OP-G Mobility & Gait Start: 05/16/25 09:52 Freq: Status: Active Protocol: Document 05/16/25 09:53 ASTRONAUT MISSION SPECIALIST (Rec: 05/17/25 08:02 ASTRONAUT MISSION SPECIALIST Laptop) OP Gait Assessment Comments Gait Comments significant forward flexed posture at hips and lumbar spine, antalgic pattern with decreased stance time on RLE/quick step of LLE with uneven step lengths PT-OP-L Special Tests Start: 05/17/25 08:02 Freq: Status: Active Protocol: Document 05/16/25 09:53 ASTRONAUT MISSION SPECIALIST (Rec: 05/17/25 08:05 ASTRONAUT MISSION SPECIALIST Laptop) Special Tests Other Special Tests Special Tests Positive slump test, exacerbated with RLE knee ext and DF PT-OP-M Strength Start: 05/16/25 09:52 Freq: Status: Active Protocol: Document 05/16/25 09:53 ASTRONAUT MISSION SPECIALIST (Rec: 05/16/25 10:48 ASTRONAUT MISSION SPECIALIST Laptop) Hip Strength Hip Manual Muscle Testing R Flexion (L2) 4+ Good+ Extension (S1) 2+ Poor+ Abduction 3- Fair- Comments limited in ext and abd by pain in R hip, ext tested in sidelying L Flexion (L2) 4 Good Extension (S1) 3- Fair- Abduction 3 Fair Comments limited in ext and abd by pain in R hip, ext tested in sidelying Knee Strength Knee Manual Muscle Testing R Flexion (S2) 5 Normal Extension (L3) 5 Normal L Flexion (S2) 4+ Good+ Extension (L3) 4+ Good+ Ankle/Foot Strength Ankle and Foot Manual Muscle Testing R Dorsiflexion (L4) 4 Good L Dorsiflexion (L4) 4+ Good+ PT-OP-Q Treatments Start: 05/16/25 09:52 Freq: Status: Active Protocol: Document 06/06/25 11:43 NBM (Rec: 06/06/25 12:39 NBM Laptop) Therapeutic Exercises Supine Exercises PPT Supine Exercise Name 1. PPT with hold 2. PPT hold w/ BKFO 3. PPT hold with alt march Equipment Used monitoring TrA medially to ASIS Reps/Minutes 1. x10 with hold of 3 inhale/exhale 2. x10 ea 3. attempted Comments initial tact cues PPT, cues breath. Oblique/ breathholding comp w/ marchi= SKTOC Supine Exercise Name single knee to opposite chest Side bilateral Reps/Minutes 1 min x3 Comments HEP review, cue for TrA and breath w/ leg lift SKTC Supine Exercise Name single knee to chest Side bilateral Reps/Minutes 1 min x3 Comments HEP review DKTC Supine Exercise Name double knee to chest Side bilateral Reps/Minutes 2 mins Comments cue deep belly breaths PT-OP-T Assessment and Plan Start: 05/16/25 09:52 Freq: Status: Active Protocol: Document 06/06/25 11:43 NBM (Rec: 06/06/25 12:39 NBM Laptop) Physical Therapy Assessment Goals 4 Impairment Pain with functional activities Impairment poor activity tolerance with amb d/t pain Short Term Goal (STG Pt will amb for 5 mins on even surface with or without ) AD without rest break to demonstrate improved activity tolerance. STG Duration 6 weeks Behavior Clinician Goal (LTG) Pt will report ability to play 12 hole golf x1 session with pain no higher than 3/10 in order to return to hobby. LTG Duration 12 weeks 3 Impairment HEP Short Term Goal (STG Pt will demonstrate ind with progressive HEP program at ) least 1x/day, 5 days/wk, for at least 3 weeks in order to progress towards LTGs. STG Duration 6 weeks 2 Impairment BLE strength Impairment On eval: R hip ext 2+, hip abd 3- L hip ext 3-, hip abd 3 Behavior Clinician Goal (LTG) Pt will improve B hip strength of hip ext and hip abd to at least 4/5 without pain to improve function. LTG Duration 12 weeks 1 Impairment LEFS Impairment On eval: 23/80 71% impaired Behavior Clinician Goal (LTG) Pt will improve LEFS score from 23/80 to at least 60/80 to demonstrate improved function. LTG Duration 12 weeks Assessment Summary Assessment Dawson presents without walker today and following cortisone shot last Wednesday. He demos good log roll form without cueing when sitting EOB to lying supine. He requires cues for TrA activation without breath holding for lower extremity elevation to perform supine stretches but demos improved self-awareness with repetition and cueing. He requires initial tactile cues for PPT and consistent verbal cues for breath, but also demos improved self-awareness progressing to PPT hold without tactile cues. HEP HO given again, pt instructed to work on BKFO instead of marching due to breath holding and oblique m. compensations w/ marching . Physical Therapy Plan Frequency and Duration Frequency of 1-2x/wk Treatment Duration of 12 treatment (weeks) Plan of Care Start 05/16/25 Date Plan of Care End 08/08/25 Date Next Visit Focus/Plan Next Note Type Treatment Note Next Visit Plan review PPT and breathing and progress as tolerated, gentle supine hip strengthening in pain free range with HEP HO, gentle piriformis stretch
--- NOTE | 2025-06-08 09:06 | PT.OTN ---
Current Diagnoses Sciatica, right side (06/08/25) Physical Therapy Treatment Note PT OP: Lower Back/Lower Extremity Start: 06/08/25 08:16 Freq: Status: Active Protocol: Document 06/08/25 08:17 SUPERVISOR ROLLING ROOM (Rec: 06/08/25 09:06 SUPERVISOR ROLLING ROOM Laptop) Out-Patient Physical Therapy Visit Information Visit Information Visit Type Treatment Note Visit Start Time 08:18 Visit Stop Time 09:00 Visit Number 6 Number of PURCHASING OFFICER Visits 0 Progress Note Due 06/15/25 OP-PT Subjective Patient Comments Patient Comments Pt walks into session this morning without AD with upright posture and minimal gait impairment, he reports he is feeling much better after injection on Wednesday and feels no need for 4WW which he left in the car. Current pain 0/10. Pt also reports he has been busy since last session on Wed and has been unable to practice HEP. Therapeutic Exercises Supine Exercises Glute sets Supine Exercise Name 1. in hookyling, unable to feel activation well 2. in supine Side bilateral Reps/Minutes x10 each position Comments without pain PPT Supine Exercise Name 1. PPT with hold and while breathing 2. PPT hold with BKFO Equipment Used towel roll for cueing greatly improves activation during exhale Reps/Minutes x10 each Comments improved activation of TA during leg fall out with towel roll SKTOC Supine Exercise Name single knee to opposite chest Side bilateral Reps/Minutes 1 min x3 Comments HEP review, cues for pulling more diagonal to feel stretch SKTC Supine Exercise Name single knee to chest Side bilateral Reps/Minutes 1 min x3 Comments HEP review DKTC Supine Exercise Name double knee to chest Side bilateral Reps/Minutes 1 min x3 Comments cue deep belly breaths, HEP review Physical Therapy Assessment Goals 4 Impairment Pain with functional activities Impairment poor activity tolerance with amb d/t pain Short Term Goal (STG Pt will amb for 5 mins on even surface with or without ) AD without rest break to demonstrate improved activity tolerance. STG Duration 6 weeks Inspector Hairspring Truing Goal (LTG) Pt will report ability to play 12 hole golf x1 session with pain no higher than 3/10 in order to return to hobby. LTG Duration 12 weeks 3 Impairment HEP Short Term Goal (STG Pt will demonstrate ind with progressive HEP program at ) least 1x/day, 5 days/wk, for at least 3 weeks in order to progress towards LTGs. STG Duration 6 weeks 2 Impairment BLE strength Impairment On eval: R hip ext 2+, hip abd 3- L hip ext 3-, hip abd 3 Correction Goal (LTG) Pt will improve B hip strength of hip ext and hip abd to at least 4/5 without pain to improve function. LTG Duration 12 weeks 1 Impairment LEFS Impairment On eval: 23/80 71% impaired Correction Goal (LTG) Pt will improve LEFS score from 23/80 to at least 60/80 to demonstrate improved function. LTG Duration 12 weeks Assessment Summary Assessment Pt tolerated well with slight increased pain at end of session d/t laying down for long period of time, demonstrated improved activation of TA with addition of towel roll cue. Physical Therapy Plan Frequency and Duration Frequency of 1-2x/wk Treatment Duration of 12 treatment (weeks) Plan of Care Start 05/16/25 Date Plan of Care End 08/08/25 Date Therapeutic Interventions Therapeutic Balance Training,Gait Training,Home Exercise Program, Interventions Joint Mobilizations,Manual Therapy,Neuromuscular Re- education,Patient/Caregiver Education,Soft Tissue Mobilization,Therapeutic Activities,Therapeutic Exercises Modalities Cold Pack/Ice Massage,Electric Stimulation,Hot Packs, Iontophoresis,Traction- Mechanical,Ultrasound Next Visit Focus/Plan Next Note Type Treatment Note Next Visit Plan Continue progressing TA, add HS and gastroc stretching, add bridges and clamshells
--- NOTE | 2025-06-14 20:34 | PT.OTN ---
Current Diagnoses Sciatica, right side (06/14/25) Physical Therapy Treatment Note PT OP: Lower Back/Lower Extremity Start: 06/08/25 08:16 Freq: Status: Active Protocol: Document 06/14/25 11:39 FORENSIC ECONOMIST (Rec: 06/14/25 12:31 FORENSIC ECONOMIST Laptop) Out-Patient Physical Therapy Visit Information Visit Information Visit Type Treatment Note Visit Start Time 11:38 Visit Stop Time 12:20 Visit Number 7 Number of BILINGUAL MEDICAL RECEPTIONIST Visits 0 Progress Note Due 06/15/25 OP-PT Subjective Patient Comments Patient Comments Pt reports he is feeling much better, pain currently at 1/10 to R lower lateral leg just below knee. Has been working on his HEP but not as consistently as he knows he should. Therapeutic Exercises Supine Exercises Piriformis stretch Supine Exercise Name figure 4 stretch Side right Equipment Used towel Reps/Minutes 30s x3 Comments added to HEP with HO DKTC Supine Exercise Name not performed but recommended to perform prior to getting OOB each am Standing Exercises Step ups Standing Exercise 1. step ups 2. step downs Name Side bilateral Equipment Used B HRs Reps/Minutes x10 each leg each exercise Comments without pain, min VC for slower descend Therapeutic Activity Therapeutic Activity Sleep position Name pillows between knees Comments discussed importance and added to HEP Floor transfer Name standing<>floor Reps/Minutes x1 Comments performed ind with light UE support on nearby mat table , without pain and cleared to perform HEP on floor at home d/t bed and couch being too soft Manual Therapy Treatment Consent Patient gave verbal Yes consent for manual treatment Soft Tissue Mobilization hip Body Location R piriformis, glute med Mobilization Type Cross-Friction,Myofascial Release,Rolling Intensity/Depth Moderate Body Position Sidelying Physical Therapy Assessment Goals 4 Impairment Pain with functional activities Impairment poor activity tolerance with amb d/t pain Short Term Goal (STG Pt will amb for 5 mins on even surface with or without ) AD without rest break to demonstrate improved activity tolerance. STG Duration 6 weeks Retirement Goal (LTG) Pt will report ability to play 12 hole golf x1 session with pain no higher than 3/10 in order to return to hobby. LTG Duration 12 weeks 3 Impairment HEP Short Term Goal (STG Pt will demonstrate ind with progressive HEP program at ) least 1x/day, 5 days/wk, for at least 3 weeks in order to progress towards LTGs. STG Duration 6 weeks 2 Impairment BLE strength Impairment On eval: R hip ext 2+, hip abd 3- L hip ext 3-, hip abd 3 Retirement Goal (LTG) Pt will improve B hip strength of hip ext and hip abd to at least 4/5 without pain to improve function. LTG Duration 12 weeks 1 Impairment LEFS Impairment On eval: 23/80 71% impaired Bronze Chaser Goal (LTG) Pt will improve LEFS score from 23/80 to at least 60/80 to demonstrate improved function. LTG Duration 12 weeks Assessment Summary Assessment Pt tolerated all exercises well without pain, added figure 4 piriformis stretch to HEP after STM to piriformis. Physical Therapy Plan Frequency and Duration Frequency of 1-2x/wk Treatment Duration of 12 treatment (weeks) Plan of Care Start 05/16/25 Date Plan of Care End 08/08/25 Date Next Visit Focus/Plan Next Note Type Treatment Note Next Visit Plan Continue progressing TA, add HS and gastroc stretching, add bridges and clamshells, seated pallof press
--- NOTE | 2025-06-18 12:25 | PT.OTN ---
Current Diagnoses Sciatica, right side (06/18/25) Physical Therapy Treatment Note PT OP: Lower Back/Lower Extremity Start: 06/08/25 08:16 Freq: Status: Active Protocol: Document 06/18/25 10:48 [facility] (Rec: 06/18/25 12:25 [facility] [id number]) Out-Patient Physical Therapy Visit Information Visit Information Visit Type Progress Note Visit Start Time 11:35 Visit Stop Time 12:15 Visit Number 8 Number of INTERNATIONAL EDITORIAL PRODUCER Visits 0 Progress Note Due 07/18/25 OP-PT Subjective Patient Comments Patient Comments pt reports he went for a walk (1.5 mile) and both legs were sore after the next day. A little pain in R calf Patient Questionnaires Lower Extremity Functional Scale LEFS Score 52/80 Hip Strength Hip Manual Muscle Testing R Flexion (L2) 4+ Good+ Extension (S1) 3+ Fair+ Abduction 4- Good- L Flexion (L2) 4+ Good+ Extension (S1) 3+ Fair+ Abduction 4- Good- Therapeutic Exercises Supine Exercises LTR Supine Exercise Name cues gentle stretch and core engagment Side bilateral Reps/Minutes 10 bridge Side bilateral Reps/Minutes 10 Comments cues neutral core and glutes Standing Exercises hip abduction Standing Exercise sidesteps Name Side bilateral Equipment Used L2 Reps/Minutes 15ft Comments cues control paloff press Side bilateral Equipment Used 2 lvl 2 bands Reps/Minutes 15 Comments cues neutral spine Step ups Standing Exercise 1. step ups to SL then slow down 2. step downs fwd and Name step up backwards to Side bilateral Resistance 6 in step Equipment Used no HRs Reps/Minutes x10 each leg each exercise Comments without pain, min VC for slower descend Manual Therapy Treatment Consent Patient gave verbal Yes consent for manual treatment Soft Tissue Mobilization hip Body Location R lat glute Mobilization Type Rolling,Sustained Pressure Intensity/Depth Moderate Body Position Hooklying Comments w/hip IR Joint Mobilizations hip Comments R inf glide c/r; R gapping lat c/r Physical Therapy Assessment Goals 4 Impairment Pain with functional activities Impairment poor activity tolerance with amb d/t pain Short Term Goal (STG Pt will amb for 5 mins on even surface with or without ) AD without rest break to demonstrate improved activity tolerance. STG Duration achieved 18 Filleter Goal (LTG) Pt will report ability to play 12 hole golf x1 session with pain no higher than 3/10 in order to return to hobby. 06/18-some chipping only and felt ok LTG Duration 12 weeks 3 Impairment HEP Short Term Goal (STG Pt will demonstrate ind with progressive HEP program at ) least 1x/day, 5 days/wk, for at least 3 weeks in order to progress towards LTGs. 06/18- 1x/day most days STG Duration achieved 06/18 2 Impairment BLE strength Impairment On eval: R hip ext 2+, hip abd 3- L hip ext 3-, hip abd 3 Filleter Goal (LTG) Pt will improve B hip strength of hip ext and hip abd to at least 4/5 without pain to improve function. 06/18-improving LTG Duration 12 weeks 1 Impairment LEFS Impairment On eval: 23/80 71% impaired Filleter Goal (LTG) Pt will improve LEFS score from 23/80 to at least 60/80 to demonstrate improved function. 06/18-52/80 LTG Duration 12 weeks Assessment Summary Assessment pt making good progress w/PT with improved strength and dec symptoms. Still has low level symptoms and has not returned his higher function activities like golf. Pt would benefit from cont skilled PT to address these deficits. Physical Therapy Plan Frequency and Duration Frequency of 1-2x/wk Treatment Duration of 12 treatment (weeks) Plan of Care Start 05/16/25 Date Plan of Care End 08/08/25 Date Therapeutic Interventions Therapeutic Balance Training,Gait Training,Home Exercise Program, Interventions Joint Mobilizations,Manual Therapy,Neuromuscular Re- education,Patient/Caregiver Education,Soft Tissue Mobilization,Therapeutic Activities,Therapeutic Exercises Modalities Cold Pack/Ice Massage,Electric Stimulation,Hot Packs, Iontophoresis,Traction- Mechanical,Ultrasound Next Visit Focus/Plan Next Note Type Treatment Note Next Visit Plan gentle strengthening as pt tolerates, review exercises, manual to R hip
--- NOTE | 2025-06-20 12:48 | PT.OTN ---
Current Diagnoses Sciatica, right side (06/20/25) Physical Therapy Treatment Note PT OP: Lower Back/Lower Extremity Start: 06/08/25 08:16 Freq: Status: Active Protocol: Document 06/20/25 11:43 NBM (Rec: 06/20/25 12:48 NBM Laptop) Out-Patient Physical Therapy Visit Information Visit Information Visit Type Treatment Note Visit Start Time 11:40 Visit Stop Time 12:22 Visit Number 9 Number of BOBBIN SORTER Visits 1 Progress Note Due 07/18/25 OP-PT Subjective Patient Comments Patient Comments Dawson reports he had to travel to [place] a couple of times and has not yet tried golfing, and hasn't done much of his ex's. No pain at the moment. He felt a little tingly earlier this morning down R calf but no pain. Therapeutic Exercises Supine Exercises LTR Supine Exercise Name cues gentle stretch and core engagment Side bilateral Reps/Minutes 10 ea bridge Side bilateral Reps/Minutes 10 Comments cues neutral core, glutes, breathwork Piriformis stretch Supine Exercise Name HEP mod figure 4 stretch Side bilateral Reps/Minutes 1 min Comments vc R foot closer to glutes for painfree stretch; LLE overpressure to L knee PPT Supine Exercise Name HEP review: PPT hold with BKFO Equipment Used tactile cueing for maintaining PPT, pt reminded to use towel roll at home Reps/Minutes x10 each Comments cues for PPT, breath work SKTOC Supine Exercise Name HEP single knee to opposite chest Side bilateral Reps/Minutes 1 min x2 Comments HEP review, cues for pulling more diagonal to feel stretch SKTC Supine Exercise Name HEP single knee to chest Side bilateral Reps/Minutes 1 min x3 Comments L ant hip pinch resolves w/ cues for pulling more towards ipsilateral [place]enton DKTC Supine Exercise Name HEP Side bilateral Reps/Minutes 2 mins Comments cue deep belly breaths Standing Exercises hip abduction Standing Exercise sidesteps Name Side bilateral Equipment Used L2 Reps/Minutes 15ft Comments cues control, R>L neutral foot paloff press Side bilateral Equipment Used 2 lvl 2 bands Reps/Minutes 15 Comments cues neutral spine, c-sp alignment, scap setting, breath; R>L UT discomfort Step ups Standing Exercise 1. step ups to SL then slow down 2. step downs fwd and Name step up backwards to Side bilateral Resistance 6 in step Equipment Used no HRs Reps/Minutes x10 each leg each exercise Comments without pain, min VC for slower descend, wider SARAY, R>L neutral foot Manual Therapy Treatment Consent Patient gave verbal Yes consent for manual treatment Other Other Manual R UT/LS overactivation affecting scapular setting and Treatments core activation with paloff press: manual R UT and LS stretch 30sec each while pt performs supine Figure 4 stretch - palpable tension improves. Self-Care/Home Management Treatment Education Patient Education Body Mechanics,Home Exercise Program,Posture Other Education HEP review. Edu for stretching in painfree range and how to modify HEP with breath and positioning as needed for painfree and core activation. Pt agrees to performing full HEP before next visit w/ attention to R>L neutral foot positioning, posture, breath, and painfree range. Physical Therapy Assessment Goals 4 Impairment Pain with functional activities Impairment poor activity tolerance with amb d/t pain Short Term Goal (STG Pt will amb for 5 mins on even surface with or without ) AD without rest break to demonstrate improved activity tolerance. STG Duration achieved 18 Longterm Goal (LTG) Pt will report ability to play 12 hole golf x1 session with pain no higher than 3/10 in order to return to hobby. 06/18-some chipping only and felt ok LTG Duration 12 weeks 3 Impairment HEP Short Term Goal (STG Pt will demonstrate ind with progressive HEP program at ) least 1x/day, 5 days/wk, for at least 3 weeks in order to progress towards LTGs. 06/18- 1x/day most days STG Duration achieved 06/18 2 Impairment BLE strength Impairment On eval: R hip ext 2+, hip abd 3- L hip ext 3-, hip abd 3 Longterm Goal (LTG) Pt will improve B hip strength of hip ext and hip abd to at least 4/5 without pain to improve function. 06/18-improving LTG Duration 12 weeks 1 Impairment LEFS Impairment On eval: 23/80 71% impaired Longterm Goal (LTG) Pt will improve LEFS score from 23/80 to at least 60/80 to demonstrate improved function. 06/18-52/80 LTG Duration 12 weeks Assessment Summary Assessment Treatment focus on HEP review and self-care. Education to Dawson for stretching in painfree range and how to modify HEP with breath and positioning as needed for painfree range and core activation. Pt agrees to performing full HEP before next visit w/ attention to R >L neutral foot positioning, posture, breath, and painfree range. Physical Therapy Plan Frequency and Duration Frequency of 1-2x/wk Treatment Duration of 12 treatment (weeks) Plan of Care Start 05/16/25 Plan of Care End 08/08/25 Date Therapeutic Interventions Therapeutic Balance Training,Gait Training,Home Exercise Program, Interventions Joint Mobilizations,Manual Therapy,Neuromuscular Re- education,Patient/Caregiver Education,Soft Tissue Mobilization,Therapeutic Activities,Therapeutic Exercises Modalities Cold Pack/Ice Massage,Electric Stimulation,Hot Packs, Iontophoresis,Traction- Mechanical,Ultrasound Next Visit Focus/Plan Next Note Type Treatment Note Next Visit Plan gentle strengthening as pt tolerates, review exercises, manual to R hip
--- NOTE | 2025-06-28 19:37 | PT.OTN ---
Current Diagnoses Sciatica, right side (06/28/25) Physical Therapy Treatment Note PT OP: Lower Back/Lower Extremity Start: 06/08/25 08:16 Freq: Status: Active Protocol: Document 06/28/25 16:27 BATTERY HAND (Rec: 06/28/25 17:06 BATTERY HAND Laptop) Out-Patient Physical Therapy Visit Information Visit Information Visit Type Treatment Note Visit Start Time 15:22 Visit Stop Time 17:05 Visit Number 10 Number of MEDICAL TECHNOLOGIST MICROBIOLOGY Visits 0 Progress Note Due 07/18/25 OP-PT Subjective Patient Comments Patient Comments Pt reports he went golfing on Wednesday and had minimal pain during golf and took cart vs walking, he felt more fatigue than pain. Pain increased on Wednesday with more than since he had the shot. Current pain is 3/10 in R glute. Therapeutic Exercises Supine Exercises Lumbar rotation Supine Exercise Name double knees side to side Side bilateral Reps/Minutes x10 each side with 3-5s hold Comments positive result Prone Exercises Cat cow Reps/Minutes x10 each Comments min cueing, positive result Standing Exercises paloff press Side bilateral Equipment Used L3 TB Reps/Minutes x10 each side Step ups Standing Exercise step ups 6 step Name Side bilateral Equipment Used light HR support Reps/Minutes x10 each leg Comments VC for slow lower down Physical Therapy Assessment Goals 4 Impairment Pain with functional activities Impairment poor activity tolerance with amb d/t pain Short Term Goal (STG Pt will amb for 5 mins on even surface with or without ) AD without rest break to demonstrate improved activity tolerance. STG Duration achieved 18 [facility] Goal (LTG) Pt will report ability to play 12 hole golf x1 session with pain no higher than 3/10 in order to return to hobby. 06/18-some chipping only and felt ok LTG Duration 12 weeks 3 Impairment HEP Short Term Goal (STG Pt will demonstrate ind with progressive HEP program at ) least 1x/day, 5 days/wk, for at least 3 weeks in order to progress towards LTGs. 06/18- 1x/day most days STG Duration achieved 06/18 2 Impairment BLE strength Impairment On eval: R hip ext 2+, hip abd 3- L hip ext 3-, hip abd 3 Center Sales And Service Associate Goal (LTG) Pt will improve B hip strength of hip ext and hip abd to at least 4/5 without pain to improve function. 06/18-improving LTG Duration 12 weeks 1 Impairment LEFS Impairment On eval: 23/80 71% impaired [facility] Goal (LTG) Pt will improve LEFS score from 23/80 to at least 60/80 to demonstrate improved function. 06/18-52/80 LTG Duration 12 weeks Assessment Summary Assessment Spinal ROM exercises initiated this session and pt tolerated well without increased pain. Reviewed core strengthening pallof press and LE strengthening step ups from pt's HEP and pt performed with minimal cueing. Pt demonstrates improved compliance with HEP since last session. Did not add to HEP in order for pt to become comfortable with current HEP first. Physical Therapy Plan Frequency and Duration Frequency of 1-2x/wk Treatment Duration of 12 treatment (weeks) Plan of Care Start 05/16/25 Date Plan of Care End 08/08/25 Date Therapeutic Interventions Therapeutic Balance Training,Gait Training,Home Exercise Program, Interventions Joint Mobilizations,Manual Therapy,Neuromuscular Re- education,Patient/Caregiver Education,Soft Tissue Mobilization,Therapeutic Activities,Therapeutic Exercises Modalities Cold Pack/Ice Massage,Electric Stimulation,Hot Packs, Iontophoresis,Traction- Mechanical,Ultrasound Next Visit Focus/Plan Next Note Type Treatment Note Next Visit Plan review cat cow and lumbar rotation, STM to lumbar and R piriformis as needed
--- NOTE | 2025-07-04 17:23 | PT.OTN ---
Current Diagnoses Sciatica, right side (07/04/25) Physical Therapy Treatment Note PT OP: Lower Back/Lower Extremity Start: 06/08/25 08:16 Freq: Status: Active Protocol: Document 07/04/25 14:45 NBM (Rec: 07/04/25 17:23 NBM Laptop) Out-Patient Physical Therapy Visit Information Visit Information Visit Type Treatment Note Visit Start Time 14:42 Visit Stop Time 15:25 Visit Number 11 Number of LABORATORY APPARATUS GLASS BLOWER Visits 1 Progress Note Due 07/18/25 OP-PT Subjective Patient Comments Patient Comments Dawson reports he's doing home ex's regularly with exception of sidesteps and when travelling to [place]. Cat/cow feels really good but he isn't sure how to breathe with it. First time he played golf was eye opening how much weaker he is. He played 18-hole round of golf this morning with golf cart and minimal low back pain 11/10. He did dishes when he got home. He has discomfort with standing still so bounces around if having to stand. Right now low back discomfort and he occasionally has pain down R calf, usually when getting up out of bed. He finds himself holding breath often and feels since surgery he struggles to take full breath, nurse told him he has adhesions along scar, and wonders if liver was too large. His L hip also bothers him. Therapeutic Exercises Supine Exercises Lumbar rotation Supine Exercise Name double knees side to side Side bilateral Reps/Minutes x10 each side with 3-5s hold Comments positive result PPT Supine Exercise Name HEP review: PPT hold with BKFO Equipment Used tactile cueing for maintaining PPT, pt reminded to use towel roll at home Reps/Minutes x10 each Comments cues for PPT, breath work SKTOC Supine Exercise Name HEP single knee to opposite chest Side bilateral Reps/Minutes 1 min x2 Comments HEP review SKTC Supine Exercise Name HEP single knee to chest Side bilateral Reps/Minutes 1 min x3 Comments L ant hip pinch resolves w/ cues for pulling more towards ipsilateral [place] DKTC Supine Exercise Name HEP Side bilateral Reps/Minutes 2 mins Comments cue deep belly breaths Prone Exercises Cat cow Equipment Used cues lungs as balloon filling w/ air Cow, squeezing air out Cat Reps/Minutes x10 each Comments positive result; vc full ROM cat,heavy cues for breathwork vs breathholding Sitting Exercises diaphragmatic breathing Sitting Exercise hand on chest, hand on belly for feedback Name Reps/Minutes 2' Comments pt challenged not to breath into chest - improves w/ reps and cues Scap retract Sitting Exercise 1. scap depress 2. scap retract-not today 3. combo - Name not today Side bilateral Reps/Minutes 10x2 each Comments mod to min TC Standing Exercises hip abduction Standing Exercise sidesteps - HEP review Name Side bilateral Equipment Used L2, handrail Reps/Minutes 15ft ea Comments cues upright posture, R>L neutral foot and no R scuffing Step ups Standing Exercise step ups 6 step Name Side bilateral Equipment Used light HR support Reps/Minutes x10 each leg Comments good pacing, cues for wider SARAY and neutral foot R Therapeutic Activity Therapeutic Activity Sleep position Name pillows between knees Comments discussed importance and HEP verbal review - pt reports still working on the perfect pillow. Too heavy to roll over - discussed pulling pillow up with hands to roll to other side then replacing, and how improving core strength can help with rolling over with added weight of pillow between LEs. Self-Care/Home Management Treatment Education Patient Education Body Mechanics,Home Exercise Program,Posture Other Education -HEP review w/ incorporation of TrA activation and breathwork. -Pt i/s in self-scar tissue massage to abdominal surgical incisions for possible adhesions and improved breathwork. Edu to pt re: how surgical incision through TrA m. and possible adhesions may contribute to sensation of unable to take full breath since surgery. Pt encouraged to address questions regarding surgery to surgeon. Physical Therapy Assessment Goals 4 Impairment Pain with functional activities Impairment poor activity tolerance with amb d/t pain Short Term Goal (STG Pt will amb for 5 mins on even surface with or without ) AD without rest break to demonstrate improved activity tolerance. STG Duration achieved Director Data Analytics Goal (LTG) Pt will report ability to play 12 hole golf x1 session with pain no higher than 3/10 in order to return to hobby. 06/18-some chipping only and felt ok 07/04/25: Pt played 18 hole golf x1 session with cart with minimal low back pain 1/10. LTG Duration 12 weeks 3 Impairment HEP Short Term Goal (STG Pt will demonstrate ind with progressive HEP program at ) least 1x/day, 5 days/wk, for at least 3 weeks in order to progress towards LTGs. 06/18- 1x/day most days STG Duration achieved 8/18 2 Impairment BLE strength Impairment On eval: R hip ext 2+, hip abd 3- L hip ext 3-, hip abd 3 Intermediate Goal (LTG) Pt will improve B hip strength of hip ext and hip abd to at least 4/5 without pain to improve function. 06/18-improving LTG Duration 12 weeks 1 Impairment LEFS Impairment On eval: 23/80 71% impaired Director Data Analytics Goal (LTG) Pt will improve LEFS score from 23/80 to at least 60/80 to demonstrate improved function. 06/18-52/80 LTG Duration 12 weeks Assessment Summary Assessment Treatment focus on LE strengthening and core training w / breathwork as pt continues to demonstrate breathholding compensatory pattern. He is instructed in self-scar tissue massage for possible adhesions, in diaphragmatic breathing, Transverse abdominis m. activation in standing, and emphasis on incorporating core with breathing awareness into HEP and functional mobility. Low back tightness start of session improves with treatment. He requires cues for wider base of support with 6 step ups B and for neutral foot R>L and not allowing R foot scuff with resisted sidesteps. Physical Therapy Plan Frequency and Duration Frequency of 1-2x/wk Treatment Duration of 12 treatment (weeks) Plan of Care Start 05/16/25 Date Plan of Care End 08/08/25 Date Next Visit Focus/Plan Next Note Type Treatment Note Next Visit Plan review cat cow and lumbar rotation, STM to lumbar and R piriformis as needed
--- NOTE | 2025-07-06 14:33 | PT.OTN ---
Current Diagnoses Sciatica, right side (07/06/25) Physical Therapy Treatment Note PT OP: Lower Back/Lower Extremity Start: 06/08/25 08:16 Freq: Status: Active Protocol: Document 07/06/25 13:54 PROCUREMENT ENGINEER (Rec: 07/06/25 14:33 PROCUREMENT ENGINEER Laptop) Out-Patient Physical Therapy Visit Information Visit Information Visit Type Treatment Note Visit Start Time 13:52 Visit Stop Time 14:31 Visit Number 12 Number of BUILDING GUARD DEPUTY SHERIFF Visits 0 Progress Note Due 07/18/25 OP-PT Subjective Patient Comments Patient Comments Pt reports he played 3 rounds of golf without pain during or after, is still driving around in golf cart. Therapeutic Exercises Supine Exercises Lumbar rotation Supine Exercise Name double knees side to side Side bilateral Reps/Minutes x10 each side with 3-5s hold Comments positive result Piriformis stretch Supine Exercise Name HEP mod figure 4 stretch Side bilateral Reps/Minutes 1 min Comments vc R foot closer to glutes for painfree stretch; LLE overpressure to L knee SKTOC Supine Exercise Name HEP single knee to opposite chest Side bilateral Reps/Minutes 1 min x2 Comments HEP review SKTC Supine Exercise Name HEP single knee to chest Side bilateral Reps/Minutes 1 min x3 Comments L ant hip pinch resolves w/ cues for pulling more towards ipsilateral kenton DKTC Supine Exercise Name HEP Side bilateral Reps/Minutes 2 mins Comments cue deep belly breaths Prone Exercises UE ext Prone Exercise Name alt Side bilateral Reps/Minutes x10 each Comments not yet added to HEP LE ext Prone Exercise Name alt Side bilateral Reps/Minutes x10 each Comments not yet added to HEP Thread the needle Prone Exercise Name demonstrated modified against car prior to golf Side bilateral Reps/Minutes x5 each side with 3s hold Cat cow Reps/Minutes x10 each Sidelying Exercises Open book Side bilateral Reps/Minutes x5 with 5-10s hold Comments Added to HEP, pt declines HO Physical Therapy Assessment Goals 4 Impairment Pain with functional activities Impairment poor activity tolerance with amb d/t pain Short Term Goal (STG Pt will amb for 5 mins on even surface with or without ) AD without rest break to demonstrate improved activity tolerance. STG Duration achieved 18 [facility] Living Goal (LTG) Pt will report ability to play 12 hole golf x1 session with pain no higher than 3/10 in order to return to hobby. 06/18-some chipping only and felt ok 07/04/25: Pt played 18 hole golf x1 session with cart with minimal low back pain 11/10. LTG Duration 12 weeks 3 Impairment HEP Short Term Goal (STG Pt will demonstrate ind with progressive HEP program at ) least 1x/day, 5 days/wk, for at least 3 weeks in order to progress towards LTGs. 06/18- 1x/day most days STG Duration achieved 06/18 2 Impairment BLE strength Impairment On eval: R hip ext 2+, hip abd 3- L hip ext 3-, hip abd 3 [facility] Living Goal (LTG) Pt will improve B hip strength of hip ext and hip abd to at least 4/5 without pain to improve function. 06/18-improving LTG Duration 12 weeks 1 Impairment LEFS Impairment On eval: 23/80 71% impaired [facility] Living Goal (LTG) Pt will improve LEFS score from 23/80 to at least 60/80 to demonstrate improved function. 06/18-52/80 LTG Duration 12 weeks Assessment Summary Assessment Pt tolerated all spinal ROM stretches and back extensor strengthening without pain. Physical Therapy Plan Frequency and Duration Frequency of 1-2x/wk Treatment Duration of 12 treatment (weeks) Plan of Care Start 05/16/25 Date Plan of Care End 08/08/25 Date Next Visit Focus/Plan Next Note Type Treatment Note Next Visit Plan advance prone UE and LE ext to alt arm and leg
--- NOTE | 2025-07-11 16:35 | PT.OTN ---
Current Diagnoses Sciatica, right side (07/11/25) Physical Therapy Treatment Note PT OP: Lower Back/Lower Extremity Start: 06/08/25 08:16 Freq: Status: Active Protocol: Document 07/11/25 14:02 NBM (Rec: 07/11/25 16:35 NBM Laptop) Out-Patient Physical Therapy Visit Information Visit Information Visit Type Treatment Note Visit Start Time 13:55 Visit Stop Time 14:35 Visit Number 13 Number of WEB UI DEVELOPER Visits 1 Progress Note Due 07/18/25 OP-PT Subjective Patient Comments Patient Comments Dawson reports he last did open book last Wednesday, and went golfing Wednesday and it hurt in middle of chest around pec muscles; he's been holding arm out instead of letting it drop and relax. When he squats to line up golf ball he needs the help of the club to get back up . Therapeutic Exercises Prone Exercises UE ext Prone Exercise Name alt - on fists Side bilateral Reps/Minutes x10 each Comments cues TrA, neutral weightbearing, form, breath; added to HEP, no HO LE ext Prone Exercise Name alt Side bilateral Equipment Used tissue box on sacrum for level pelvis biofeedback Reps/Minutes x5 w/ tactile cues neutral pelvis, x10 each w/ biofeedback Comments cues TrA, neutral weightbearing, form, breath; added to HEP, no HO Cat cow Prone Exercise Name HEP Reps/Minutes x10 each Comments cues full range cat, occ cues breathwork Sidelying Exercises Open book Side bilateral Equipment Used 3 pillow head support Reps/Minutes x10, x5 with 5-10s hold Comments HEP review, cues c-sp rot, scap setting, let arm relax into pec stretch Physical Therapy Assessment Goals 4 Impairment Pain with functional activities Impairment poor activity tolerance with amb d/t pain Short Term Goal (STG Pt will amb for 5 mins on even surface with or without ) AD without rest break to demonstrate improved activity tolerance. STG Duration achieved Owner/Operator Goal (LTG) Pt will report ability to play 12 hole golf x1 session with pain no higher than 3/10 in order to return to hobby. 06/18-some chipping only and felt ok 07/04/25: Pt played 18 hole golf x1 session with cart with minimal low back pain 1/10. LTG Duration 12 weeks 3 Impairment HEP Short Term Goal (STG Pt will demonstrate ind with progressive HEP program at ) least 1x/day, 5 days/wk, for at least 3 weeks in order to progress towards LTGs. 06/18- 1x/day most days STG Duration achieved 06/18 2 Impairment BLE strength Impairment On eval: R hip ext 2+, hip abd 3- L hip ext 3-, hip abd 3 Owner/Operator Goal (LTG) Pt will improve B hip strength of hip ext and hip abd to at least 4/5 without pain to improve function. 06/18-improving LTG Duration 12 weeks 1 Impairment LEFS Impairment On eval: 23/80 71% impaired Senior Living Goal (LTG) Pt will improve LEFS score from 23/80 to at least 60/80 to demonstrate improved function. 06/18-52/80 LTG Duration 12 weeks Assessment Summary Assessment Dawson requires cues for form with Open book stretch for allowing cervical rotation demonstrating limited cervical rotation, scapular setting, and relaxing top arm into stretch instead of actively holding, and he demos improved thoracic rotation following. He hold breath when cued for Transverse abdominis m. activation w/ UE extension, and is challenged to maintain neutral pelvis with lower extremity extension and requires cues for breathwork; he is able to maintain neutral pelvis with biofeedback but without full LE extension. Added to HEP: UE alt ext and LE alt ext with instructions to focus on LE if pressed for time; no HO given. Physical Therapy Plan Frequency and Duration Frequency of 1-2x/wk Treatment Duration of 12 treatment (weeks) Plan of Care Start 05/16/25 Date Plan of Care End 08/08/25 Date Therapeutic Interventions Therapeutic Balance Training,Gait Training,Home Exercise Program, Interventions Joint Mobilizations,Manual Therapy,Neuromuscular Re- education,Patient/Caregiver Education,Soft Tissue Mobilization,Therapeutic Activities,Therapeutic Exercises Modalities Cold Pack/Ice Massage,Electric Stimulation,Hot Packs, Iontophoresis,Traction- Mechanical,Ultrasound Next Visit Focus/Plan Next Note Type Treatment Note Next Visit Plan advance prone UE and LE ext to alt arm and leg
--- NOTE | 2025-07-13 18:08 | PT.OPPN ---
Current Diagnoses Sciatica, right side (07/13/25) Physical Therapy Progress Note PT OP: Lower Back/Lower Extremity Start: 06/08/25 08:16 Freq: Status: Active Protocol: Document 07/13/25 13:53 CNA LTC (Rec: 07/13/25 14:29 CNA LTC Laptop) Out-Patient Physical Therapy Visit Information Visit Information Visit Type Progress Note Visit Start Time 11:50 Visit Stop Time 14:30 Visit Number 14 Number of RECONSTRUCTIVE SURGEON Visits 0 Progress Note Due 08/12/25 OP-PT Subjective Patient Comments Patient Comments Pt reports no pain today and did not wake up with numbness today. Hip Strength Hip Manual Muscle Testing R Flexion (L2) 5 Normal Extension (S1) 4 Good Abduction 4 Good L Flexion (L2) 4+ Good+ Extension (S1) 4- Good- Abduction 4- Good- Therapeutic Exercises Prone Exercises Donkey kicks Side bilateral Reps/Minutes x10 Comments manual pressure applied to L HS to prevent cramp UE ext Prone Exercise Name alt Side bilateral Reps/Minutes x10 each LE ext Prone Exercise Name alt Side bilateral Reps/Minutes x10 each Physical Therapy Assessment Goals 4 Impairment Pain with functional activities Impairment poor activity tolerance with amb d/t pain Short Term Goal (STG Pt will amb for 5 mins on even surface with or without ) AD without rest break to demonstrate improved activity tolerance. STG Duration achieved Department Editor Goal (LTG) Pt will report ability to play 12 hole golf x1 session with pain no higher than 3/10 in order to return to hobby. 06/18-some chipping only and felt ok 07/04/25: MET, Pt played 18 hole golf x1 session with cart with minimal low back pain 1/10. LTG Duration 12 weeks MET 3 Impairment HEP Short Term Goal (STG Pt will demonstrate ind with progressive HEP program at ) least 1x/day, 5 days/wk, for at least 3 weeks in order to progress towards LTGs. 06/18- 1x/day most days 07/13: Progressing, pt reports he does cat/cow daily but did HEP about 2x/wk STG Duration achieved 06/18 2 Impairment BLE strength Impairment On eval: R hip ext 2+, hip abd 3- L hip ext 3-, hip abd 3 Department Editor Goal (LTG) Pt will improve B hip strength of hip ext and hip abd to at least 4/5 without pain to improve function. 06/18-improving 9/12: Progressing, met in all except L hip ext and abd LTG Duration 12 weeks 1 Impairment LEFS Impairment On eval: 71% impaired Department Editor Goal (LTG) Pt will improve LEFS score from to at least 60/80 to demonstrate improved function. 06/18- 07/13: MET, 64/80 LTG Duration 12 weeks MET Assessment Summary Assessment Pt is progressing well towards goals, meeting LEFS goal for 60/80 from on eval, BLE strength improving to meet goal except L hip ext and abd, and has improved golf and walking tolerance to meet goal but while riding golf cart. Physical Therapy Plan Frequency and Duration Frequency of 1-2x/wk Treatment Duration of 12 treatment (weeks) Plan of Care Start 05/16/25 Date Plan of Care End 08/08/25 Date Next Visit Focus/Plan Next Note Type Treatment Note Next Visit Plan advance prone UE and LE ext to alt arm and leg
--- NOTE | 2025-07-18 16:00 | PT.OTN ---
Current Diagnoses Sciatica, right side (07/18/25) Physical Therapy Treatment Note PT OP: Lower Back/Lower Extremity Start: 06/08/25 08:16 Freq: Status: Active Protocol: Document 07/18/25 15:11 XAVIER (Rec: 07/18/25 16:08 XAVIER [id number]) Out-Patient Physical Therapy Visit Information Visit Information Visit Type Treatment Note Visit Start Time 15:15 Visit Stop Time 15:55 Visit Number 15 Number of BOILER OUT Visits 0 Progress Note Due 08/12/25 OP-PT Subjective Patient Comments Patient Comments Patient reports he went golfing today and had no increased pain in his back. He reports his back is doing well overall. Therapeutic Exercises Supine Exercises bridge Supine Exercise Name SL Side bilateral Reps/Minutes 2x10 Comments cues neutral core, glutes, breathwork Prone Exercises Bird dog Side bilateral Reps/Minutes 2x10 each side Comments cues for core control and mechanics Donkey kicks Side bilateral Reps/Minutes x10 each side Comments manual pressure applied to L HS to prevent cramp Cat cow Prone Exercise Name HEP Reps/Minutes x10 each direction Comments cues full range cat, occ cues breathwork Standing Exercises paloff press Side bilateral Resistance Purple band Reps/Minutes 2x10 each side Step ups Standing Exercise step ups 6 step Name Side bilateral Equipment Used light HR support Reps/Minutes 3x10 each leg Comments good pacing, cues for wider SARAY and neutral foot R Physical Therapy Assessment Assessment Summary Assessment Treatment focused on gross core and hip strengthening. Patient tolerated treatment well with no increases in pain levels. Cues were given throughout session for lumbo-pelvic motor control. Plan next session to progress loading as appropriate and also complete progress note. Physical Therapy Plan Frequency and Duration Frequency of 1-2x/wk Treatment Duration of 12 treatment (weeks) Plan of Care Start 05/16/25 Date Plan of Care End 08/08/25 Date Next Visit Focus/Plan Next Note Type Progress Note Next Visit Plan Complete progress update and progress loading as appropriate.
--- NOTE | 2025-07-27 17:32 | PT.OTN ---
Current Diagnoses Sciatica, right side (07/27/25) Physical Therapy Treatment Note PT OP: Lower Back/Lower Extremity Start: 06/08/25 08:16 Freq: Status: Active Protocol: Document 07/27/25 13:58 NBM (Rec: 07/27/25 14:40 NBM Laptop) Out-Patient Physical Therapy Visit Information Visit Information Visit Type Treatment Note Visit Start Time 13:55 Visit Stop Time 14:40 Visit Number 16 Number of ENTEROSTOMAL NURSE Visits 1 Progress Note Due 08/12/25 OP-PT Subjective Patient Comments Patient Comments Dawson reports he is doing well and so admits to not doing home exercises. Other than a little stiffness there hasn't been pain like when we first met. He's not in golf cart the whole time and walks to some of the balls. He's built up some of his endurance. Patient Reported Improving Progress Therapeutic Exercises Standing Exercises Quad stretch Standing Exercise Personal HEP: Pt demos pulling contralateral foot Name across. Side bilateral Equipment Used handrail Reps/Minutes 30 sec ea Comments Cues for LE alignment. bandwalking Standing Exercise fwd/bwd Name Side bilateral Resistance Lvl 2 Tb at ankles Reps/Minutes 10 ft x 2 Comments occasional cues to keep tension hip abduction Standing Exercise sidesteps - HEP review Name Side bilateral Equipment Used L2, handrail Reps/Minutes 2x10 ft ea; 2x10 ft off rail in mini squat Comments cues posture at rail, hip hinge w/ mini squat off rail, R>L neutral foot paloff press Side bilateral Resistance Purple band Reps/Minutes 2x10 each side Comments initial cues for TrA and breath; painfree Step ups Standing Exercise step ups 6 step Name Side bilateral Equipment Used light HR support>no UE support Reps/Minutes 2x10 each leg, x10 no UE support (L>R weakness) Comments good pacing, pt self-corrects wider SARAY and neutral foot Self-Care/Home Management Treatment Education Patient Education Body Mechanics,Home Exercise Program,Pain Management, Posture Other Education Pt describes pushing cart to carry golf clubs which is fine on flats, but causes low back pain on inclines/ declines. He is educated to perform height adjustment for inclines/declines. HEP: Pt admits to not doing HEP unless in pain. Discussion with pt regarding role of HEP as preventative program but that pt should also utilize it if symptoms of nerve pain down R leg or low back increase, particularly if not not performing consistently. Physical Therapy Assessment Goals 4 Impairment Pain with functional activities Impairment poor activity tolerance with amb d/t pain Short Term Goal (STG Pt will amb for 5 mins on even surface with or without ) AD without rest break to demonstrate improved activity tolerance. STG Duration achieved 18 Cad Cam Programmer Goal (LTG) Pt will report ability to play 12 hole golf x1 session with pain no higher than 3/10 in order to return to hobby. 06/18-some chipping only and felt ok 07/04/25: MET, Pt played 18 hole golf x1 session with cart with minimal low back pain /. LTG Duration 12 weeks MET 3 Impairment HEP Short Term Goal (STG Pt will demonstrate ind with progressive HEP program at ) least 1x/day, 5 days/wk, for at least 3 weeks in order to progress towards LTGs. 06/18- 1x/day most days 07/13: Progressing, pt reports he does cat/cow daily but did HEP about 2x/wk STG Duration achieved 06/18 2 Impairment BLE strength Impairment On eval: R hip ext 2+, hip abd 3- L hip ext 3-, hip abd 3 Care Home Goal (LTG) Pt will improve B hip strength of hip ext and hip abd to at least 4/5 without pain to improve function. 06/18-improving 07/13: Progressing, met in all except L hip ext and abd LTG Duration 12 weeks 1 Impairment LEFS Impairment On eval: 23/80 71% impaired Care Home Goal (LTG) Pt will improve LEFS score from 23/80 to at least 60/80 to demonstrate improved function. 06/18-52/80 07/13: MET, 64/80 LTG Duration 12 weeks MET Assessment Summary Assessment Dawson presents without low back or hip pain, and reports some low back pain with push cart on inclines. He is educated on adjusting cart height for inclines/ declines, and encouraged to bring golf bag in. He is provided quad stretch correction for personal HEP, and demos improved LE strength with 6 step ups bilaterally and is able to perform without upper extremity support . Physical Therapy Plan Frequency and Duration Frequency of 1-2x/wk Treatment Duration of 12 treatment (weeks) Plan of Care Start 05/16/25 Date Plan of Care End 10/08/25 Date Next Visit Focus/Plan Next Note Type Progress Note Next Visit Plan Next: Assess body mechanics for carrying golf clubs if pt brings in. POC: Complete progress update and progress loading as appropriate.
--- NOTE | 2025-08-01 15:27 | PT.OTN ---
Current Diagnoses Sciatica, right side (08/01/25) Physical Therapy Treatment Note PT OP: Lower Back/Lower Extremity Start: 06/08/25 08:16 Freq: Status: Active Protocol: Document 08/01/25 14:36 JZ (Rec: 08/01/25 15:27 JMariam [id number]) Out-Patient Physical Therapy Visit Information Visit Information Visit Type Treatment Note Visit Start Time 14:35 Visit Stop Time 15:15 Visit Number 17 Number of SECURITIES TRADER Visits 0 Progress Note Due 08/12/25 OP-PT Subjective Patient Comments Patient Comments Patient reports he continues to be symptom free. Therapeutic Exercises Prone Exercises Bird dog Side bilateral Reps/Minutes 2x10 each side Comments cues for core control and mechanics Cat cow Prone Exercise Name HEP Reps/Minutes x20 each direction Comments cues full range cat, occ cues breathwork Standing Exercises Single leg hip hinge Standing Exercise Contralateral LE kickstand and UE support on table Name Reps/Minutes 2x10 each side bandwalking Standing Exercise fwd/bwd Name Side bilateral Resistance Lvl 2 Tb at ankles Reps/Minutes 10 ft x 6 Comments occasional cues to keep tension paloff press Side bilateral Resistance Purple band Reps/Minutes 2x10 each side Comments initial cues for TrA and breath; painfree Step ups Standing Exercise step ups 6 step Name Side bilateral Equipment Used light HR support>no UE support Reps/Minutes 2x10 each leg, x10 no UE support (L>R weakness) Comments good pacing, pt self-corrects wider SARAY and neutral foot Physical Therapy Assessment Goals 4 Impairment Pain with functional activities Impairment poor activity tolerance with amb d/t pain Short Term Goal (STG Pt will amb for 5 mins on even surface with or without ) AD without rest break to demonstrate improved activity tolerance. STG Duration achieved Correction Goal (LTG) Pt will report ability to play 12 hole golf x1 session with pain no higher than 3/10 in order to return to hobby. 06/18-some chipping only and felt ok 07/04/25: MET, Pt played 18 hole golf x1 session with cart with minimal low back pain /10. LTG Duration 12 weeks MET 3 Impairment HEP Short Term Goal (STG Pt will demonstrate ind with progressive HEP program at ) least 1x/day, 5 days/wk, for at least 3 weeks in order to progress towards LTGs. 06/18- 1x/day most days 07/13: Progressing, pt reports he does cat/cow daily but did HEP about 2x/wk STG Duration achieved 06/18 2 Impairment BLE strength Impairment On eval: R hip ext 2+, hip abd 3- L hip ext 3-, hip abd 3 Correction Goal (LTG) Pt will improve B hip strength of hip ext and hip abd to at least 4/5 without pain to improve function. 06/18-improving 07/13: Progressing, met in all except L hip ext and abd LTG Duration 12 weeks 1 Impairment LEFS Impairment On eval: 23/80 71% impaired Correction Goal (LTG) Pt will improve LEFS score from 23/80 to at least 60/80 to demonstrate improved function. 06/18- 07/13: MET, 64/80 LTG Duration 12 weeks MET Assessment Summary Assessment Treatment focused on continued low back, hip, and core strengthening. Patient continues to respond to treatment well with no reported remaining symptoms. Plan to continue with plan of care for two more sessions and complete discharge on patient's last scheduled session on 08/07/2025. Physical Therapy Plan Frequency and Duration Frequency of 1-2x/wk Treatment Duration of 12 treatment (weeks) Plan of Care Start 05/16/25 Date Plan of Care End 08/08/25 Date Next Visit Focus/Plan Next Note Type Treatment Note Next Visit Plan Next: Assess body mechanics for carrying golf clubs if pt brings in. Continue with plan of care focused on promoting independence with HEP and core, hip and spine strengthening.
--- NOTE | 2025-08-03 15:54 | PT.OPDS ---
Current Diagnoses Sciatica, right side (08/03/25) Visit Care Team Role Provider Type Humberto Triana MD Attending Provider Physician Primary Care Provider Referring Provider Specialty: Internal Medicine Address: [address] [place] [address], [facility] Email: [email or web address] Visit Number Visit Number 18 Discharge Summary PT OP: Lower Back/Lower Extremity Start: 06/08/25 08:16 Freq: Status: Active Protocol: Document 08/03/25 14:34 JZ (Rec: 08/03/25 15:53 JZ [id number]) Out-Patient Physical Therapy Visit Information Visit Information Visit Type Discharge Summary Visit Start Time 14:37 Visit Stop Time 15:15 Visit Number 18 Number of OXYGEN THERAPIST Visits 0 Progress Note Due 08/12/25 OP-PT Subjective Patient Comments Patient Comments Patient reports that he has no pain at this point and feels comfortable continuing progress independently. Therapeutic Exercises Prone Exercises Bird dog Side bilateral Reps/Minutes 2x10 each side Comments cues for core control and mechanics UE ext Prone Exercise Name alt Side bilateral Reps/Minutes x10 each Thread the needle Side bilateral Reps/Minutes x5 each side with 3s hold Cat cow Prone Exercise Name HEP Reps/Minutes x20 each direction Comments cues full range cat, occ cues breathwork Standing Exercises Single leg hip hinge Standing Exercise Contralateral LE kickstand and UE support on table Name Reps/Minutes 2x10 each side Quad stretch Standing Exercise Personal HEP: Pt demos pulling contralateral foot Name across. Side bilateral Equipment Used handrail Reps/Minutes 30 sec ea Comments Cues for LE alignment. paloff press Side bilateral Resistance Purple band Reps/Minutes 2x10 each side Comments initial cues for TrA and breath; painfree Step ups Standing Exercise step ups 6 step Name Side bilateral Resistance 10# Reps/Minutes 3x10 Physical Therapy Assessment Goals 4 Impairment Pain with functional activities Impairment poor activity tolerance with amb d/t pain Short Term Goal (STG Pt will amb for 5 mins on even surface with or without ) AD without rest break to demonstrate improved activity tolerance. STG Duration achieved Soundscriber Mechanic Goal (LTG) Pt will report ability to play 12 hole golf x1 session with pain no higher than 3/10 in order to return to hobby. 06/18-some chipping only and felt ok 07/04/25: MET, Pt played 18 hole golf x1 session with cart with minimal low back pain 11/10. LTG Duration 12 weeks MET 3 Impairment HEP Short Term Goal (STG Pt will demonstrate ind with progressive HEP program at ) least 1x/day, 5 days/wk, for at least 3 weeks in order to progress towards LTGs. 06/18- 1x/day most days 07/13: Progressing, pt reports he does cat/cow daily but did HEP about 2x/wk STG Duration achieved 06/18 2 Impairment BLE strength Impairment On eval: R hip ext 2+, hip abd 3- L hip ext 3-, hip abd 3 Shelter Goal (LTG) Pt will improve B hip strength of hip ext and hip abd to at least 4/5 without pain to improve function. 06/18-improving 07/13: Progressing, met in all except L hip ext and abd LTG Duration 12 weeks 1 Impairment LEFS Impairment On eval: 23/80 71% impaired Shelter Goal (LTG) Pt will improve LEFS score from 23/80 to at least 60/80 to demonstrate improved function. 06/18-52/80 07/13: MET, 64/80 LTG Duration 12 weeks MET Assessment Summary Assessment Patient presenting to PT after 17 visits for low back pain. Patient has made improvement with symptoms and function and feels comfortable continuing his exercises independently. Patient has also met the majority of his PT goals (see above) and is thus appropriate for discharge. Because of progress noted above, and patient confidence continuing independently, today will be his last PT session. Physical Therapy Plan Frequency and Duration Frequency of 1-2x/wk Treatment Duration of 12 treatment (weeks) Plan of Care Start 05/16/25 Date Plan of Care End 08/08/25 Date Next Visit Focus/Plan Next Visit Plan N/A - Discharged today
== END 2025-08-06 09:42 | disposition home or self-care (01) ==
LOC: PHYS 14:30
PROVIDERS: PCP Internal Medicine; Referring Provider Internal Medicine; Visit Provider Internal Medicine
DX: M54.31 Sciatica, right side (principal)
CPT/HCPCS: 97110; 97116; 97140; 97163; 97530; 97535

== ENCOUNTER → 2025-08-14 06:29 | Outpatient (CLI) | payer MEDICARE, OTHER, SELFPAY ==
[2025-08-14 07:32] LABS: Add Manual Diff / Slide Review NO; Hematocrit 37.8 % (41-53); Hemoglobin 12.5 g/dL (13.5-17.5); Lymphocytes Absolute Auto 1200 /uL (1100-4500); Mean Corpuscular HGB Conc 33.1 % (30-36); Mean Corpuscular Hemoglobin 29.5 PG (26-34); Mean Corpuscular Volume 89.2 fL (80-100); Platelet Count 143 X10^3/uL (150-400)
[2025-08-14 07:50] LABS: INR 1.1 (0.9-1.3); Prothrombin Time 12.0 SECONDS (9.4-12.5)
[2025-08-14 07:54] LABS: Alanine Aminotransferase 18 IU/L (<50); Albumin 4.3 g/dL (3.5-5.0); Albumin Globulin Ratio 1.7 (1.0-2.8); Alkaline Phosphatase 68 U/L (38-126); Blood Urea Nitrogen 27 mg/dL (9-20); Calcium 9.2 mg/dL (8.4-10.2); Carbon Dioxide 23 mmol/L (22-32); Chloride 107 mmol/L (98-107); Estimated Glomerular Filt Rate > 60 mL/min (>60); Gamma Glutamyl Transpeptidase 19 U/L (15-73); Globulin 2.6 g/dL (1.7-4.1); Glucose 111 mg/dL (70-99); HEMOLYSIS < 15 (0-50); Magnesium 1.4 mg/dL (1.6-2.3); Phosphorous 3.8 mg/dL (2.3-3.7); Potassium 4.0 mmol/L (3.4-5.1); Sodium 140 mmol/L (137-145); Total Protein 6.9 g/dL (6.3-8.2)
[2025-08-16 13:10] LABS: CMV DNA, Quant Real Time PCR Negative (Negative)
== END ==
PROVIDERS: PCP Internal Medicine; Referring Provider Nurse Practitioner Adult Health; Visit Provider Nurse Practitioner Adult Health
DX: Z48.298 Encounter for aftercare following other organ transplant (principal); Z79.899 Other long term (current) drug therapy; Z94.4 Liver transplant status
CPT/HCPCS: 36415; 80053; 80076; 80197; 82977; 83735; 84100; 85025; 85610; 87497

== ENCOUNTER → 2025-08-28 06:32 | Outpatient (CLI) | payer MEDICARE, OTHER, SELFPAY ==
[2025-08-28 07:51] LABS: Add Manual Diff / Slide Review NO; Hematocrit 38.0 % (41-53); Hemoglobin 12.5 g/dL (13.5-17.5); Lymphocytes Absolute Auto 1000 /uL (1100-4500); Mean Corpuscular HGB Conc 33.0 % (30-36); Mean Corpuscular Hemoglobin 29.4 PG (26-34); Mean Corpuscular Volume 89.0 fL (80-100); Platelet Count 143 X10^3/uL (150-400)
[2025-08-28 08:09] LABS: INR 1.1 (0.9-1.3); Prothrombin Time 12.6 SECONDS (9.4-12.5)
[2025-08-28 08:16] LABS: Alanine Aminotransferase 17 IU/L (<50); Albumin 4.4 g/dL (3.5-5.0); Albumin Globulin Ratio 1.7 (1.0-2.8); Alkaline Phosphatase 66 U/L (38-126); Blood Urea Nitrogen 26 mg/dL (9-20); Calcium 9.2 mg/dL (8.4-10.2); Carbon Dioxide 24 mmol/L (22-32); Chloride 107 mmol/L (98-107); Estimated Glomerular Filt Rate > 60 mL/min (>60); Gamma Glutamyl Transpeptidase 17 U/L (15-73); Globulin 2.6 g/dL (1.7-4.1); Glucose 115 mg/dL (70-99); HEMOLYSIS < 15 (0-50); Magnesium 1.4 mg/dL (1.6-2.3); Phosphorous 3.3 mg/dL (2.3-3.7); Potassium 4.2 mmol/L (3.4-5.1); Sodium 141 mmol/L (137-145); Total Protein 7.0 g/dL (6.3-8.2)
[2025-08-28 15:14] LABS: Hepatitis B Surface Antigen NEGATIVE s/c (NEGATIVE)
== END ==
PROVIDERS: PCP Internal Medicine; Referring Provider Internal Medicine Gastroenterology; Visit Provider Internal Medicine Gastroenterology
DX: Z48.298 Encounter for aftercare following other organ transplant (principal); Z94.4 Liver transplant status; Z79.899 Other long term (current) drug therapy
CPT/HCPCS: 36415; 80053; 80076; 80197; 82977; 83735; 84100; 85025; 85610; 87340; 87497

== ENCOUNTER → 2025-09-11 06:55 | Outpatient (CLI) | payer MEDICARE, OTHER, SELFPAY ==
[2025-09-11 08:08] LABS: Add Manual Diff / Slide Review NO; Hematocrit 35.5 % (41-53); Hemoglobin 11.9 g/dL (13.5-17.5); INR 1.1 (0.9-1.3); Lymphocytes Absolute Auto 1100 /uL (1100-4500); Mean Corpuscular HGB Conc 33.6 % (30-36); Mean Corpuscular Hemoglobin 29.8 PG (26-34); Mean Corpuscular Volume 88.9 fL (80-100); Platelet Count 153 X10^3/uL (150-400); Prothrombin Time 12.4 SECONDS (9.4-12.5)
[2025-09-11 08:25] LABS: Alanine Aminotransferase 17 IU/L (<50); Albumin 4.1 g/dL (3.5-5.0); Albumin Globulin Ratio 1.6 (1.0-2.8); Alkaline Phosphatase 65 U/L (38-126); Blood Urea Nitrogen 24 mg/dL (9-20); Calcium 9.3 mg/dL (8.4-10.2); Carbon Dioxide 25 mmol/L (22-32); Chloride 106 mmol/L (98-107); Estimated Glomerular Filt Rate > 60 mL/min (>60); Gamma Glutamyl Transpeptidase 16 U/L (15-73); Globulin 2.6 g/dL (1.7-4.1); Glucose 106 mg/dL (70-99); HEMOLYSIS < 15 (0-50); Magnesium 1.5 mg/dL (1.6-2.3); Phosphorous 3.9 mg/dL (2.3-3.7); Potassium 4.0 mmol/L (3.4-5.1); Sodium 140 mmol/L (137-145); Total Protein 6.7 g/dL (6.3-8.2)
[2025-09-11 08:57] LABS: Hepatitis B Surface Antigen NEGATIVE s/c (NEGATIVE)
== END ==
PROVIDERS: PCP Internal Medicine; Referring Provider Internal Medicine Gastroenterology; Visit Provider Internal Medicine Gastroenterology
DX: Z48.298 Encounter for aftercare following other organ transplant (principal); Z79.899 Other long term (current) drug therapy; Z94.4 Liver transplant status
CPT/HCPCS: 36415; 80048; 80076; 80197; 82977; 83735; 84100; 85025; 85610; 87340; 87517

== ENCOUNTER → 2025-09-25 06:28 | Outpatient (CLI) | payer MEDICARE, OTHER, SELFPAY ==
[2025-09-25 08:00] LABS: Add Manual Diff / Slide Review NO; Hematocrit 37.7 % (41-53); Hemoglobin 12.6 g/dL (13.5-17.5); Lymphocytes Absolute Auto 1200 /uL (1100-4500); Mean Corpuscular HGB Conc 33.3 % (30-36); Mean Corpuscular Hemoglobin 29.9 PG (26-34); Mean Corpuscular Volume 90.0 fL (80-100); Platelet Count 125 X10^3/uL (150-400)
[2025-09-25 08:11] LABS: INR 1.1 (0.9-1.3); Prothrombin Time 12.0 SECONDS (9.4-12.5)
[2025-09-25 08:57] LABS: Alanine Aminotransferase 17 IU/L (<50); Albumin 4.5 g/dL (3.5-5.0); Albumin Globulin Ratio 1.8 (1.0-2.8); Alkaline Phosphatase 59 U/L (38-126); Blood Urea Nitrogen 26 mg/dL (9-20); Calcium 9.4 mg/dL (8.4-10.2); Carbon Dioxide 27 mmol/L (22-32); Chloride 107 mmol/L (98-107); Estimated Glomerular Filt Rate > 60 mL/min (>60); Gamma Glutamyl Transpeptidase 17 U/L (15-73); Globulin 2.5 g/dL (1.7-4.1); Glucose 109 mg/dL (70-99); HEMOLYSIS < 15 (0-50); Magnesium 1.5 mg/dL (1.6-2.3); Phosphorous 3.7 mg/dL (2.3-3.7); Potassium 4.6 mmol/L (3.4-5.1); Sodium 143 mmol/L (137-145); Total Protein 7.0 g/dL (6.3-8.2)
[2025-09-25 15:08] LABS: Hepatitis B Surface Antigen NEGATIVE s/c (NEGATIVE)
== END ==
PROVIDERS: PCP Internal Medicine; Referring Provider Internal Medicine; Visit Provider Internal Medicine Gastroenterology
DX: Z48.298 Encounter for aftercare following other organ transplant (principal); Z79.899 Other long term (current) drug therapy; Z94.4 Liver transplant status
CPT/HCPCS: 36415; 80048; 80076; 80197; 82977; 83735; 84100; 85025; 85610; 87340; 87517

== ENCOUNTER → 2025-10-09 06:30 | Outpatient (CLI) | payer MEDICARE, OTHER, SELFPAY ==
[2025-10-09 08:03] LABS: INR 1.1 (0.9-1.3); Prothrombin Time 12.1 SECONDS (9.4-12.5)
[2025-10-09 08:06] LABS: Add Manual Diff / Slide Review YES; Hematocrit 36.8 % (41-53); Hemoglobin 12.4 g/dL (13.5-17.5); Mean Corpuscular HGB Conc 33.7 % (30-36); Mean Corpuscular Hemoglobin 30.4 PG (26-34); Mean Corpuscular Volume 90.4 fL (80-100); Platelet Count 126 X10^3/uL (150-400)
[2025-10-09 08:15] LABS: Atypical Lymphocytes Percent 2.0 %; Band Neutrophils Percent 2.0 % (3-7); Basophils Percent Manual 1.0 % (0-1); Eosinophils Percent Manual 4.0 % (2-4); Lymphocytes Percent Manual 30.0 % (25-45); Monocytes Percent Manual 14.0 % (2-11); Neutrophils Absolute Manual 2009 /uL (3000-5900); Segmented Neutrophils Percent 47.0 % (38-70); Total Cells Counted 100
[2025-10-09 08:16] LABS: RBC Morphology Normal Morphology
[2025-10-09 08:18] LABS: Alanine Aminotransferase 16 IU/L (<50); Albumin 4.3 g/dL (3.5-5.0); Albumin Globulin Ratio 1.7 (1.0-2.8); Alkaline Phosphatase 54 U/L (38-126); Blood Urea Nitrogen 28 mg/dL (9-20); Calcium 9.1 mg/dL (8.4-10.2); Carbon Dioxide 25 mmol/L (22-32); Chloride 109 mmol/L (98-107); Estimated Glomerular Filt Rate > 60 mL/min (>60); Gamma Glutamyl Transpeptidase 20 U/L (15-73); Globulin 2.5 g/dL (1.7-4.1); Glucose 106 mg/dL (70-99); HEMOLYSIS < 15 (0-50); Magnesium 1.4 mg/dL (1.6-2.3); Phosphorous 3.8 mg/dL (2.3-3.7); Potassium 4.1 mmol/L (3.4-5.1); Sodium 142 mmol/L (137-145); Total Protein 6.8 g/dL (6.3-8.2)
[2025-10-09 15:41] LABS: Hepatitis B Surface Antigen NEGATIVE s/c (NEGATIVE)
== END ==
PROVIDERS: PCP Internal Medicine; Referring Provider Internal Medicine Gastroenterology; Visit Provider Internal Medicine Gastroenterology
DX: Z48.298 Encounter for aftercare following other organ transplant (principal); Z79.899 Other long term (current) drug therapy; Z94.4 Liver transplant status
CPT/HCPCS: 36415; 80048; 80076; 80197; 82977; 83735; 84100; 85007; 85025; 85610; 87340; 87517

== ENCOUNTER → 2025-10-30 06:38 | Outpatient (CLI) | payer MEDICARE, OTHER, SELFPAY ==
[2025-10-30 08:17] LABS: Add Manual Diff / Slide Review NO; Hematocrit 37.9 % (41-53); Hemoglobin 12.7 g/dL (13.5-17.5); Lymphocytes Absolute Auto 1100 /uL (1100-4500); Mean Corpuscular HGB Conc 33.5 % (30-36); Mean Corpuscular Hemoglobin 30.3 PG (26-34); Mean Corpuscular Volume 90.3 fL (80-100); Platelet Count 130 X10^3/uL (150-400)
[2025-10-30 08:22] LABS: INR 1.0 (0.9-1.3); Prothrombin Time 11.7 SECONDS (9.4-12.5)
[2025-10-30 08:40] LABS: Alanine Aminotransferase 19 IU/L (<50); Albumin 4.1 g/dL (3.5-5.0); Albumin Globulin Ratio 1.6 (1.0-2.8); Alkaline Phosphatase 62 U/L (38-126); Blood Urea Nitrogen 26 mg/dL (9-20); Calcium 9.1 mg/dL (8.4-10.2); Carbon Dioxide 23 mmol/L (22-32); Chloride 110 mmol/L (98-107); Estimated Glomerular Filt Rate > 60 mL/min (>60); Gamma Glutamyl Transpeptidase 22 U/L (15-73); Globulin 2.5 g/dL (1.7-4.1); Glucose 107 mg/dL (70-99); HEMOLYSIS < 15 (0-50); Magnesium 1.3 mg/dL (1.6-2.3); Phosphorous 3.2 mg/dL (2.3-3.7); Potassium 3.8 mmol/L (3.4-5.1); Sodium 142 mmol/L (137-145); Total Protein 6.6 g/dL (6.3-8.2)
== END ==
PROVIDERS: PCP Internal Medicine; Referring Provider Internal Medicine Gastroenterology; Visit Provider Internal Medicine Gastroenterology
DX: Z48.298 Encounter for aftercare following other organ transplant (principal); Z79.899 Other long term (current) drug therapy; Z94.4 Liver transplant status
CPT/HCPCS: 36415; 80048; 80076; 80197; 82977; 83735; 84100; 85025; 85610